=== PATIENT | male | born 1950 | race Caucasian/White ===

== ENCOUNTER 2016-11-25 13:01 | Emergency (ER) | payer OTHER ==
--- NOTE | 2016-11-25 19:50 | CON ---
DATE OF CONSULTATION: 11/25/2016 CONSULTING PHYSICIAN: Dr. Sánchez in the emergency room. CONSULTED PHYSICIAN: Monico Gerardo M.D. with Urology. REASON FOR CONSULTATION: Scrotal bleeding. HISTORY OF PRESENT ILLNESS: Mr. Hawk is a 66-year-old white male who is well known to me for his hi story of prostate cancer status post robotic prostatectomy performed by myself. He has been doing v kristina well from this standpoint and states that he has excellent control incontinence of his urine wit hout any hematuria or significant pain. He still has complete erectile dysfunction and is awaiting recovery. He is scheduled to follow up with me in January for a PSA. Currently, he came to the em ergency room yesterday. He woke up in the middle of night to go to the bathroom. While he was on t o his way to the bathroom, he scratched his scrotum, I think secondary to some itching and apparentl y ruptured varicosity on his scrotal wall which resulted in fairly significant bleeding. Patient do es take Eliquis and as a result, the bleeding was profuse and did not cease for approximately 3-4 ho urs. After significant amount of time of holding pressure on this, it seemed to have stopped. The patient then went to the hospital to see his who currently underwent a knee replacement surgery . While visiting her, the bleeding restarted and therefore, the patient has come down to the emerge ncy room for evaluation. At the time of my arrival to the emergency room, the patient's bleeding deras s stopped yet again. He states he is not actively bleeding and not having any pain in the scrotal r egion. He has never had bleeding like this before in the scrotum, but has had bleeding events like this on other parts of his body secondary to scratches or next while taking Eliquis. Of note, the p atramy does have a history of taking Eliquis secondary to atrial fibrillation. He has already under gone a cardioversion and was found to be in normal sinus rhythm afterwards and was told that he coul d stop his Eliquis; however, the patient also wanted to stop his flecainide and after stopping his f lecainide, Dr. Ballard recommend that he go back on his Eliquis until the patient could complete a Ho lter monitor program to ensure that he was still in sinus rhythm. The patient's Holter monitor stud y has been completed, but he has not yet got results of whether or not he has to keep taking his Rebeca janelle or not. ALLERGIES: None. CURRENT MEDICATIONS: 1. Bystolic. 2. Eliquis. 3. Amlodipine. 4. Zyrtec. 5. Fish oil. 6. Multivitamins. 7. Prevacid. 8. Irbesartan. 9. Vitamin D. PAST MEDICAL HISTORY: 1. Prostate cancer. 2. Multiple orthopedic fractures. 3. Atrial fibrillation. PAST SURGICAL HISTORY: 1. Tonsillectomy. 2. Back surgery. 3. Thumb surgery. 4. Cardioversion. 5. Cardiac ablation. 6. Robotic prostatectomy. SOCIAL HISTORY: Patient denies tobacco. States that he drinks alcohol only socially. Denies any i llicit drug use. FAMILY HISTORY: Significant for stroke, bone cancer and hypertension. REVIEW OF SYSTEMS: A 12 point review of systems is reviewed and unremarkable. The patient specific ally denies any arrhythmias, palpitations, chest pain, shortness of breath, dizziness, syncopal epis odes, fevers or chills, scrotal pain, problems with urination, dysuria, hematuria, lower extremity s welling or any other concerning signs or symptoms. Remainder of 12 point review of systems reviewed and otherwise negative. PHYSICAL EXAMINATION: GENERAL: No apparent distress, alert and oriented x3, well-nourished, well-developed, appears state d age. CARDIOVASCULAR: Regular rate and rhythm. Normal S1 and S2. Symmetric pulses. CHEST: No increased work of breathing. Symmetric expansion of the lungs. Clear anteriorly. GASTROINTESTINAL: Soft, nontender, and nondistended. Positive bowel sounds, no masses, no hepatosp lenomegaly. The port sites all fully healed without evidence of hernia. EXTREMITIES: No clubbing, cyanosis or edema. MUSCULOSKELETAL: No joint deformities or joint erythema noted. SKIN: Warm, dry, good turgor. GASTROINTESTINAL: On the scrotum, there is a lot of matted blood which precludes examination of pro per varicosities. There is no active bleeding at this time. Previous area is noted on the scrotum, which appears to be slightly lacerated which is likely where the bleeding had come from. This area is no longer actively bleeding. The penis is unremarkable and otherwise nonfocal. Testis bilatera lly descended. Penis is nonfocal. No hematuria. RECTAL: Rectal exam is deferred. ASSESSMENT AND PLAN: A 66-year-old white male with history of prostate cancer and currently scrotal bleeding secondary to a ruptured varicosity due to patient's induced trauma from scratching his scr otum while taking Eliquis. The bleeding appears to have stopped currently, but may have a relativel y high risk of restarting if the scab comes loose. I have recommended that the ER provided him with either Gelfoam fibrillar or Surgicel to take home with him. If the bleeding were to restart, I hav e asked him to use one of the hemostatic agent applied to the area of bleeding and hold pressure aga inst the scrotum for approximately 5 minutes. This should be very effective and inducing thrombosis and clotting of the bleeding area and resulting fairly quick hemostasis. The vein itself should cl ose within approximately 24 hours and should not result in any further bleeding. 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 From my standpoint otherwise unless he deras s recurrent bleeding from scrotal varices, surgical or laser ablation of scrotal varices not indicat ed unless this becomes a persistent recurring problem. I think he can keep his appointment with me as scheduled in January and nothing further needs to be done currently as the patient is not active ly bleeding.
--- OUTSIDE RECORDS SUMMARY | 2016-11-30 19:09 | XMS | Clinical Summary ---
:1950 Author Organization [facility] Address [address] [place] [address] Phone Care Team Providers Name Role Phone , Primary Care Provider Unavailable Allergies Not on File Current Medications Not on file Active Problems Not on file Social History Tobacco Use Types Packs/Day Years Used Date Never Assessed Sex Assigned at Date Recorded Not on file Last Filed Vital Signs Not on file Plan of Treatment Not on file Results Not on filefrom Last 3 Months
== END 2016-11-25 14:35 | disposition home or self-care (01) ==
LOC: ERS 13:01
DX: I86.1 Scrotal varices (principal); I48.91 Unspecified atrial fibrillation; K21.9 Gastro-esophageal reflux disease without esophagitis; I10 Essential (primary) hypertension
CPT/HCPCS: 99283

== ENCOUNTER 2017-03-09 10:13 | Outpatient (CLI) | payer MEDICARE, OTHER ==
[2017-03-09 11:33] LABS: #Basophils 0.1 thou/uL (0.0-0.2); #Eosinphils 0.3 thou/uL (0.0-0.7); #Lymphocytes 2.4 thou/uL (1.20-3.40); #Monocytes 0.8 thou/uL (0.11-0.59); #Neutrophils 7.5 thou/uL (1.40-6.50); %Basophils 0.7 % (0.0-1.0); %Eosinophils 2.7 % (0.0-10.0); %Lymphocytes 21.4 % (21.0-51.0); %Monocytes 7.4 % (0.0-10.0); %Neutrophils 67.8 % (42.0-75.0); Hemoglobin 15.9 g/dL (14.0-18.0); Mean Corpuscular HGB CONC 33.6 g/dL (32.0-36.0); Mean Corpuscular Hemoglobin 29.9 pg (27.0-31.0); Mean Corpuscular Volume 88.9 fl (80.0-94.0); Mean Platelet Volume 6.7 fL (7.4-10.4); Platelet Count 226 thou/uL (130-400); RBC Distribution Width 12.4 % (11.5-14.5); Red Blood Cell (RBC) Count 5.34 mill/uL (4.70-6.10); White Blood Cell (WBC) Count 11.1 thou/uL (4.8-10.8)
[2017-03-09 12:04] LABS: Anion Gap 13 mmol/L (10-20); BUN (Urea Nitrogen) 17 mg/dL (8.4-25.7); Calc. Creatinine Clearance 0 mL/min (70-130); Calcium 9.4 mg/dL (7.8-10.44); Carbon Dioxide 29 mmol/L (23-31); Chloride 105 mmol/L (98-107); Estimated GFR-MDRD 65; Glucose 100 mg/dL (80-115); Potassium 3.8 mmol/L (3.5-5.1); Sodium 143 mmol/L (136-145)
== END 2017-03-09 10:14 | disposition home or self-care (01) ==
LOC: LABBT 10:13
PROVIDERS: ATTEND Specialist
DX: Z01.812 Encounter for preprocedural laboratory examination (principal); C49.A4 Gastrointestinal stromal tumor of large intestine
CPT/HCPCS: 80048; 85025

== ENCOUNTER → 2017-03-10 | Day surgery (SDC) | payer MEDICARE, OTHER ==
[2017-03-09 16:50] VITALS: BMI 33.9
[~2017-03-10] MED LIST: PROPOFOL 20 ML ONE; PROPOFOL 200 MG/20 ML VIAL ONE
--- NOTE | 2017-03-10 09:52 | OP ---
DATE OF PROCEDURE: 03/10/2017 INDICATION FOR PROCEDURE: This is a 66-year-old patient with atrial fibrillation and has undergone a blations in the past. He underwent a colonoscopy yesterday or the day before and then developed agai n atrial fibrillation. He was advised to undergo a cardioversion. He was taken to the recovery area where he underwent the procedure today without difficulties or complications. He was given short ac ting propofol for the procedure and using one attempt at 200 joules he was successfully converted mandy k to normal sinus rhythm with heart rate in the 60s. He remained stable throughout the procedure.
--- NOTE | 2017-03-10 11:54 | DIS ---
DATE OF PROCEDURE: 03/10/2017 PREPROCEDURE DIAGNOSES: Atrial fibrillation. His other diagnoses include history of atrial fibrilla tion in the past and flutter and ablations. He also has a history of prostate cancer. He also has h ypertension. DISCHARGE DIAGNOSES: Atrial fibrillation. His other diagnoses include history of atrial fibrillatio n in the past and flutter and ablations. He also has a history of prostate cancer. He also has hype rtension. PROCEDURES IN HOSPITAL: Included electrocardioversion with one attempt at 200 joules back to sinus r hythm. DISCHARGE MEDICATIONS: Include flecainide 50 mg b.i.d., Irbesartan 300 mg daily, Bystolic 5 mg daily , amlodipine 10 mg daily, Diamox Sequels 1 tablet in the morning and evening, aspirin 81 mg a day, Zy rtec 10 mg a day, Prevacid 15 mg tablets 1 capsule daily before meal. He also will continue on his Eliquis at 5 mg b.i.d. prior to undergoing an upcoming procedure for a benign gastric tumor. He will stop the Eliquis 2-3 days before the procedure and then resume it after the procedure. He tolerated the procedure well. No difficulties or complications were encountered. He will be disc harged home if he remains stable.
--- NOTE | 2017-05-09 21:46 | EKG ---
Test Reason : POST CARDIOVERSION Blood Pressure : / mmHG Vent. Rate : 063 BPM Atrial Rate : 063 BPM P-R Int : 220 ms QRS Dur : 104 ms QT Int : 452 ms P-R-T Axes : 067 017 034 degrees QTc Int : 462 ms Sinus rhythm with 1st degree A-V block Abnormal ECG When compared with ECG of 27-AUG-2016 11:53, No significant change was found Confirmed by BENOIT JOHNSON M.D. ([id number]) on 05/09/2017 9:46:09 PM Referred By: KITTY Confirmed By:BENOIT JOHNSON M.D.
== END ==
LOC: CCL 07:34
PROVIDERS: ATTEND Internal Medicine Cardiovascular Disease
DX: I48.0 Paroxysmal atrial fibrillation (principal); I48.4 Atypical atrial flutter; I10 Essential (primary) hypertension; F10.11 Alcohol abuse, in remission; Z85.46 Personal history of malignant neoplasm of prostate; Z80.1 Family history of malignant neoplasm of trachea, bronchus and lung; Z79.01 Long term (current) use of anticoagulants; Z79.82 Long term (current) use of aspirin; Z79.899 Other long term (current) drug therapy; Z90.79 Acquired absence of other genital organ(s); Z98.890 Other specified postprocedural states
CPT/HCPCS: 92960; 93005; 93010; J2704

== ENCOUNTER 2017-03-16 05:46 | Inpatient (IN) | payer OTHER, MEDICARE ==
--- NOTE | 2017-03-08 15:53 | HP ---
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 Shen performed appre ciating a tumor mass in the gastric fundus. He was sent to by us [place] with Dr. Viveros per formed an endoscopic ultrasound and biopsy consistent with a GIST tumor. This appeared to be benign per biopsy results. The patient is referred for resection. The patient has history of GERD. Currently, he is 267 pounds, 36 BMI. He has previously lost 50 sonya nds intentionally, but has regained 20 pounds. During his weight loss, he has noted his reflux sympt oms mostly subsided. In the past, he has been on 2 PPIs when he was heavier, but he has lost weight. He was only taking one qlla-bal-velfjhz PPI daily. The patient has occasional severe reflux every 6 months. There is also choking, but otherwise this d id not occur when he lost weight. We have had a long discussion regarding considerations of bariatri c surgery and antireflux surgery and considerations at this time at his age of 66 or to deal with onl y the GIST tumor. He was noted to have a very small hiatal hernia which has been stable for many yea rs according to past EGDs. Plan is to laparoscopically possible open resect the gastric fundus GIST tumor. He understands risks of infection, bleeding, reoperation, and consents. The patient has a history of atrial fibrillation, having had 2 ablations controlled in the last year without recurrences of atrial fibrillation. He has Watchman's procedure and he is no longer on antic oagulation. He has been followed by Dr. Campos Laird who has recently moved to [place] and he will see Dr. Wooten for preoperative cardiac clearance in the next 48 hours. The patient i s asymptomatic from a cardiac standpoint. He is active. ALLERGIES: None. TOBACCO: None. ALCOHOL: None. PAST MEDICAL HISTORY: 1. GERD for 25 years, improved with weight loss of 50 pounds, slightly worsened with 20 pound weight regain. Recent EGD revealed GIST tumor. 2. Atrial fibrillation status post two ablations without recurrent atrial fibrillation in more than a year. He has been off anticoagulation. 3. Watchman's procedure performed 4. Hypertension. 4. Prostatectomy, robotic, Dr. Gerardo, August 2016 with good pathology results. No evidence of disea se. The patient is due for colonoscopy and we will arrange with Dr. Shen. PAST SURGICAL HISTORY: Watchman's procedure; prostatectomy in August 2016, robotic; two cardiac ablati ons; cardiac catheterization 10 years ago, normal; tonsillectomy in the past; recent upper endoscopy. Upper endoscopic ultrasound revealed a mass measuring 31 x 29 mm. No lymphadenopathy seen. Bile d uct and gallbladder were normal. No other abnormalities seen. No lymphadenopathy appreciated. Biop sy results as noted above. MEDICATIONS: Bystolic 5 mg a day, irbesartan 300 mg a day, amlodipine 10 mg a day. Flecainide 100 m g twice daily, discontinued in October 2016. Prevacid daily, vitamins daily. REVIEW OF SYSTEMS: Ten point noncontributory. PHYSICAL EXAMINATION: HEAD, EARS, EYES, NOSE, AND THROAT: Unremarkable. LUNGS: Clear to auscultation. CARDIAC: Regular rate and rhythm without murmur or gallop. ABDOMEN: Soft, nontender, no masses. Diastasis recti present. Infraumbilical incision from robotic surgery. VITAL SIGNS: 267 pounds, 73 inches tall, 36 BMI, 166/80, pulse rate 57, temperature 98.1 degrees. NEUROLOGIC: Neurologically intact. GCS is 15. LYMPHATIC: No lymphadenopathy in neck, groins, or axilla. ASSESSMENT AND PLAN: 1. Gastrointestinal stromal tumor of gastric fundus. We would plan laparoscopic resection. Risks o f infection, bleeding, reoperation, gastric leakage from closure discussed and questions answered. W e will plan in the next few weeks after cardiac assessment. 2. History of atrial fibrillation, Watchman's procedure. No evidence of atrial fibrillation since t hat time. We will await Dr. Wooten's opinion who we will see in 48 hours for clearance. The patie nt is asymptomatic from a cardiac standpoint. 3. History of prostate cancer status post prostatectomy last year. 4. Due for colonoscopy per Dr. Shen.
[2017-03-09 10:37] VITALS: BMI 33.9
[2017-03-16] MEDS ORDERED: Fentanyl 100 MCG/2 ML VIAL ONE (06:55)
[2017-03-16] MEDS ORDERED: Lidocaine 1% w/Epinephrine 1:200K 30 ML VIAL ONE (07:04)
[2017-03-16] MEDS ORDERED: Bupivacaine 0.25% HCL 30 ML VIAL ONE (07:04)
[2017-03-16] MEDS ORDERED: Ketorolac Tromethamine 30 MG/ML VIAL ONE (07:10)
[2017-03-16] MEDS ORDERED: cefOXitin 2 GM, Syringe 1 ML in Sterile Water 10 ML SLOW IVP SCH (07:15)
[2017-03-16] MEDS ORDERED: Midazolam HCl 2 mg/2 ml Vial ONE (07:23)
[2017-03-16] MEDS ORDERED: Dextrose 50% Abboject 50 ML SYRINGE SLOW IVP PRN (09:51)
[2017-03-16] MEDS ORDERED: hydrALAZINE 20 MG/ML VIAL SLOW IVP PRN (09:51)
[2017-03-16] MEDS ORDERED: Dextrose 5% in Water 1,000 ML IV PRN (09:51)
[2017-03-16] MEDS ORDERED: diphenhydrAMINE 50 MG/ML VIAL IVP PRN (09:51)
[2017-03-16] MEDS ORDERED: Ondansetron HCl/PF 4 MG/2 ML Vial IVP PRN ×2 (09:51→11:01)
--- NOTE | 2017-03-16 10:42 | OP ---
DATE OF PROCEDURE: 03/16/2017 PREOPERATIVE DIAGNOSES: GIST gastric fundus tumor, hiatal hernia, history of atrial fibrillation on flecainide. POSTOPERATIVE DIAGNOSES: GIST gastric fundus tumor, hiatal hernia, history of atrial fibrillation on flecainide. Anterior lateral gastric fundus tumor and hiatal hernia. PROCEDURE: Laparoscopic hiatal hernia repair. 50-Tajik bougie. Laparoscopic resection of gastric anterior fundus tumor, GIST. Completion upper endoscopy. SURGEON: Dr. Thiago Brenner ANESTHESIA: General. Local 0.25% Marcaine 60 mL, 2% Xylocaine, 20 mL. FINDINGS: Anterior fundus lateral gastric tumor adequately removed from the gastroesophageal junctio n, stapled excision with more than adequate margins, completion endoscopy normal. PROCEDURE: The patient was taken to the operating room where under general anesthesia, abdomen was c lipped of hair, prepared with ChloraPrep, draped in routine fashion. Local anesthetic infiltrated in to skin and subcutaneous tissue about the operative sites. Supraumbilical midline incision made and pneumoperitoneum to 15 mmHg obtained with the Veress needle, replacing it with a 5 port. Video lapar oscope inserted. Bilateral far lateral subcostal incision made and 5 ports placed. Bilateral midcla vicular upper abdominal incision was made and a 15 port placed on the left and a 12 port on the right and subxiphoid incision made and a 5 mm obturator inserted and a Ruchi retractor replaced this, vis ualized laparoscopically, reflecting the left lobe of the liver anteriorly. The liver was small and normal and not fatty. The patient did have a small to moderate size hiatal hernia. This hiatal nelida ia was closed by taking down the hepatogastric ligament adjacent to the right crura and mobilizing th e phrenoesophageal ligament to the left, visualizing the left and right crura, dissecting it free pos teriorly, placing a Marcelino drain, bringing it out and held in place with a 5 mm port placed in left lower quadrant with a grasper. The posterior crura approximated with 2 sutures after a 15 Tajik lucy gie was placed into the stomach. Adequate closure of the hiatal hernia was performed. Marcelino drain was left in place as the gastric tumor was appreciated in the anterior gastric fundus, well removed and caudal from the EG junction. The area of the serosa adjacent to it was then grasped, reflected a nteriorly and a blue load stapler fired 3 times below this resecting this gastric tumor and then rafa nancy the gastric tumor through an Endobag and opening on the back table noting more than adequate piter ins. The left upper quadrant 15 mm port site was closed by approximating the posterior fascia with 0 Vicryl GraNee needle and the anterior fascia with 0 Vicryl UR 2 needle. Staple line in the stomach was inspected and noted to be hemostatic. Some clips were placed where there was some slight oozing, but otherwise is hemostatic. At this point, endoscopy performed. Endoscope placed per os under direct visualization and passed do wn the esophagus into the stomach after removing the bougie. The pylorus was visualized. The staple line was intact without bleeding. There was no leakage as visualized anteriorly with a well distend ed stomach under water. The stomach was decompressed, scope was removed and the liver retractor rafa nancy and irrigant and pneumoperitoneum evacuated and all instruments removed and all skin incisions ap proximated with interrupted subdermal 4-0 Monocryl, anterior rectus sheath was closed with 0 Vicryl s uture UR needle. DermaGlue applied. The patient tolerated the procedure well.
[2017-03-16] MEDS ORDERED: Promethazine HCl 25 MG/ML VIAL SLOW IVP PRN (11:01)
[2017-03-16] MEDS ORDERED: Ketorolac Tromethamine 30 MG/ML VIAL IVP PRN (11:01)
[2017-03-16] MEDS ORDERED: Promethazine HCl 25 MG/ML VIAL IM PRN (11:01)
[2017-03-16] MEDS ORDERED: Meperidine HCl/PF 25 MG/ML VIAL SLOW IVP PRN (11:01)
[2017-03-16] MEDS: 1/2 NS w/KCL 20 mEq 1,000 ML IV SCH ×3 (13:41→22:33)
[2017-03-16] MEDS: Acetaminophen 1,000 MG in Premix Bag 1 BAG IVPB SCH ×3 (13:41→23:44)
[2017-03-16] MEDS: Ketorolac Tromethamine 30 MG/ML VIAL IVP SCH ×3 (13:42→23:44)
[2017-03-16] MEDS ORDERED: Ondansetron HCl/PF 4 MG/2 ML Vial ONE (15:56)
[2017-03-16] MEDS ORDERED: Lidocaine 1% PF 5 ML VIAL ONE (15:56)
[2017-03-16] MEDS ORDERED: Dexamethasone 20 MG/5 ML VIAL ONE (15:56)
[2017-03-16] MEDS ORDERED: ePHEDrine/0.9% NaCl/PF SYRINGE 50 mg/10 ml ONE (15:56)
[2017-03-16] MEDS ORDERED: PHENYLEPHRINE-NS 100 MCG/ML 10 ML SYRINGE ONE (15:56)
[2017-03-16] MEDS ORDERED: Glycopyrrolate 0.2 MG/ML 5 ML SYRINGE ONE (15:56)
[2017-03-16] MEDS ORDERED: Propofol 200 MG/20 ML VIAL ONE (15:56)
[2017-03-16] MEDS: Flecainide 50 MG TAB PO SCH (20:51)
[2017-03-16] MEDS ORDERED: Enoxaparin Sodium 40 MG/0.4 ML SYRINGE SC SCH (21:00)
[2017-03-17 04:36] LABS: #Lymphocytes 1.2 thou/uL (1.20-3.40); #Monocytes 0.8 thou/uL (0.11-0.59); #Neutrophils 8.6 thou/uL (1.40-6.50); %Basophils 0.1 % (0.0-1.0); %Eosinophils 0.2 % (0.0-10.0); %Lymphocytes 11.7 % (21.0-51.0); %Monocytes 7.1 % (0.0-10.0); %Neutrophils 80.9 % (42.0-75.0); Hemoglobin 13.9 g/dL (14.0-18.0); Mean Corpuscular HGB CONC 33.9 g/dL (32.0-36.0); Mean Corpuscular Hemoglobin 30.1 pg (27.0-31.0); Mean Corpuscular Volume 88.7 fl (80.0-94.0); Mean Platelet Volume 6.2 fL (7.4-10.4); Platelet Count 238 thou/uL (130-400); Red Blood Cell (RBC) Count 4.61 mill/uL (4.70-6.10); White Blood Cell (WBC) Count 10.6 thou/uL (4.8-10.8)
[2017-03-17 04:51] LABS: Anion Gap 11 mmol/L (10-20); BUN (Urea Nitrogen) 13 mg/dL (8.4-25.7); Calc. Creatinine Clearance 128 mL/min (70-130); Calcium 8.8 mg/dL (7.8-10.44); Carbon Dioxide 27 mmol/L (23-31); Chloride 106 mmol/L (98-107); Estimated GFR-MDRD 84; Glucose 113 mg/dL (80-115); Potassium 4.2 mmol/L (3.5-5.1); Sodium 140 mmol/L (136-145)
[2017-03-17] MEDS: Ketorolac Tromethamine 30 MG/ML VIAL IVP SCH ×2 (06:28→11:48)
[2017-03-17] MEDS: Acetaminophen 1,000 MG in Premix Bag 1 BAG IVPB SCH (06:28)
[2017-03-17] MEDS ORDERED: Amlodipine 10 MG TAB PO SCH (09:00)
[2017-03-17] MEDS ORDERED: Pantoprazole 40 MG VIAL IVP SCH (09:00)
[2017-03-17] MEDS ORDERED: Nebivolol HCl 5 MG TAB PO SCH (09:00)
[2017-03-17] MEDS ORDERED: traMADol HCl 50 MG TAB PO PRN ×2 (10:00)
[2017-03-17] MEDS: Flecainide 50 MG TAB PO SCH (10:27)
[2017-03-17 11:49] VITALS: BP 156/88; TEMP 97.7
[2017-03-17] MEDS ORDERED: Hydrocodone-Acetamin 15 ML UDCUP PO PRN (14:00)
--- NOTE | 2017-03-17 14:32 | PRG ---
DATE OF SERVICE: 03/17/2017 Mr. Hawk is doing well today. He is tolerating his liquids. He was advanced to full liquids. He is passing flatus. He has had some belching. He is not nauseated. Pathology is pending. PHYSICAL EXAMINATION: LUNGS: Clear to auscultation. CARDIAC: Regular rate and rhythm without murmur or gallop. ABDOMEN: Soft, nontender. Surgical wounds look good. VITAL SIGNS: Temperature 97.7, 77, 156/88 LABORATORY: White count 10, hemoglobin 13. Basic metabolic profile was normal. ASSESSMENT AND PLAN: Doing well post-laparoscopic partial gastrectomy for GIST tumor. PLAN: Discharge home today. He is doing well. Pain control with Tylenol and Motrin. He will take Ultram as needed, prescription #20, 2 refills given. He will followup in my office in approximately a week to 10 days. Diet and activity as tolerated.
[2017-03-17] MEDS ORDERED: Acetaminophen 500 MG TAB PO PRN (16:00)
--- NOTE | 2017-03-18 03:12 | DIS ---
DATE OF ADMISSION: 03/16/2017 DATE OF DISCHARGE: 03/17/2017 DISCHARGE DIAGNOSES: GIST tumor, anterior fundus stomach, hiatal hernia. PROCEDURE: Laparoscopic hiatal hernia repair over 50-Azerbaijani bougie. Laparoscopic resection of GIST tumor with completion endoscopy. Pathology pending. Discharge hemoglobin 13. 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 Shen performed appreciated tumor mass in the gastric fundus sent to [facility]. Dr. Viveros performed endoscopic ultrasound biopsy consistent with a GIST tumor. Dr. Viveros referred him outpatient to Dr. Oconnor at [facility]. Patient, hilario melendez, preferred care at [facility] and reported to see me. He has a history of reflux much improved after inte ntional weight loss. He saw Dr. Dustin Akhtar preoperatively, had a cardioversion for atrial fibrillatio n occurring after undergoing colonoscopy. 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 He has had Watchman was procedure and seen by Dr. Campos Laird in the past for coronary care. Patient underwent cardiac evaluation, cardiac clearance and cardioversi on after the colonoscopy was normal. HOSPITAL COURSE: He underwent the above procedure and postoperatively did well, advanced from clears to full liquid diet. Pathology is pending. Patient had a small medium sized hiatal hernia repair a t the time of laparoscopy as well as resection of his GIST tumor. Grossly, the margins were negative . Pathology is pending. Patient will follow up in my office in approximately a week and half. He w ill advance his diet slowly and activities unrestricted.
== END 2017-03-17 14:15 | disposition home or self-care (01) | DRG 983 ==
LOC: SDC 05:46 → SJJU 10:54
PROVIDERS: ADMIT Specialist; ATTEND Specialist
PROC: 0DB44ZZ Excision of Esophagogastric Junction, Percutaneous Endoscopic Approach (ICD-10-PCS; principal; 2017-03-16)
PROC: 0BQT4ZZ Repair Diaphragm, Percutaneous Endoscopic Approach (ICD-10-PCS; 2017-03-16)
DX: C49.A2 Gastrointestinal stromal tumor of stomach (principal); I48.91 Unspecified atrial fibrillation; E66.9 Obesity, unspecified; I10 Essential (primary) hypertension; K21.9 Gastro-esophageal reflux disease without esophagitis; K44.9 Diaphragmatic hernia without obstruction or gangrene; Z85.46 Personal history of malignant neoplasm of prostate; Z68.36 Body mass index [BMI] 36.0-36.9, adult
CPT/HCPCS: 36415; 80048; 85025; 88307; 88341; 88342; 88360; 94760; A4216; C9113; J0131; J0694; J1100; J1650; J1885; J2001; J2250; J2270; J2405; J2704; J3010; S0020

== ENCOUNTER 2017-03-25 08:04 | Outpatient (CLI) | payer MEDICARE, OTHER ==
--- NOTE | 2017-03-25 09:09 | CT ---
CT ABDOMEN AND PELVIS WITH ORAL AND IV CONTRAST: Date: 03/25/17 HISTORY: GIST (gastrointestinal tumor), malignant. FINDINGS: There are no previous exams for comparison. The lung bases are clear. The liver, spleen, pancreas, adrenal glands, and kidneys are normal except for calcified granulomas in the spleen. No calcified gallstones are seen. No free air, free fluid, or lymphadenopathy identified in the abdomen or pelvis. The small bowel loops are not abnormally dilate d. There is colonic diverticulosis. A small, fat-containing umbilical hernia is present. No evidence of aneurysmal dilatation of the abdominal aorta is seen. There are postop changes in the stomach. The re are degenerative changes in the spine. IMPRESSION: 1. No evidence of metastatic disease. 2. Colonic diverticulosis. POS: YAIR
[2017-03-25] MEDS ORDERED: Iopamidol 370 76% 100 ML VIAL ONE (16:49)
== END 2017-03-25 08:05 | disposition home or self-care (01) ==
LOC: CT 08:04
PROVIDERS: ATTEND Specialist
DX: C49.A4 Gastrointestinal stromal tumor of large intestine (principal); K57.30 Diverticulosis of large intestine without perforation or abscess without bleeding
CPT/HCPCS: 74177

== ENCOUNTER 2017-04-03 20:30 | Outpatient (CLI) | payer MEDICARE, OTHER | END 2017-04-03 20:31 | disposition home or self-care (01) | LOC: SLEEPLAB 20:30 | PROVIDERS: ATTEND Family Medicine | DX: G47.33 Obstructive sleep apnea (adult) (pediatric) (principal); G47.31 Primary central sleep apnea; K21.9 Gastro-esophageal reflux disease without esophagitis; E66.9 Obesity, unspecified; R35.1 Nocturia | CPT/HCPCS: 95811 ==

== ENCOUNTER 2017-04-14 06:00 | Day surgery (SDC) | payer MEDICARE, OTHER ==
[2017-04-13 11:45] VITALS: BMI 33.9
[2017-04-14] MEDS ORDERED: hydrALAZINE 20 MG/ML VIAL ONE (06:44)
[2017-04-14] MEDS ORDERED: Ondansetron HCl/PF 4 MG/2 ML Vial ONE (07:09)
[2017-04-14] MEDS ORDERED: Diprivan 40 ML ONE (07:34)
[2017-04-14] MEDS ORDERED: PHENYLEPHRINE-NS 100 MCG/ML 10 ML SYRINGE ONE ×2 (07:49→15:47)
--- NOTE | 2017-04-14 09:18 | ECHO ---
CARDIOLOGY PROCEDURE NOTE: Date: 04/14/17 PROCEDURE: Transesophageal echocardiogram. REASON FOR PROCEDURE: Mr. Hawk is a 66-year-old male with history of atrial arrhythmias, now with recurrence. He has just s tarted Eliquis. He is here for JAYDON and cardioversion. PROCEDURE IN DETAIL: The patient received propofol by anesthesia provider. After adequate level of sedation achieved, the standard transesophageal echocardiogram probe was passed into the esophagus without difficulty. The p atient tolerated the procedure well. No complications noted. RESULTS: Left atrium mildly enlarged, about 4.2 cm in horizontal diameter. Left atrial appendage well visualiz ed and contains no clots. Left atrial velocity is excellent, over 60 cm/second. Four of four pulmonar y veins were visualized. Max velocity of 60 cm/second on the left side. No stenosis identified. Inter atrial septum is free of defect. Mitral valve has mild regurgitation. Wall thickness and LV size is n ormal. Right chambers nondilated. No ventricular or atrial septal defect visualized. Tricuspid valve has mild regurgitation. Aortic valve has three leaflets with trivial regurgitation noted only. Pulmon renny valve is not well visualized. Pericardial space without effusion. Visualized portion the ascendin g and descending aorta without aneurysm, dissection, or atheroma. Left atrial appendage well visuali zed in detail in preparation for potential Watchman occlusion device in the future. CONCLUSION: 1. No intracardiac clots. 2. Normal LV function. 3. Mild left atrial enlargement. 4. Mild valvular heart disease, with mild MR, AI and TR visualize.
--- NOTE | 2017-04-14 11:06 | OP ---
DATE OF PROCEDURE: 04/14/2017 PROCEDURE: Cardioversion. REFERRING PHYSICIAN: Dr. Swathi Akhtar Mr. Hawk is a 66-year-old male with prior history of atrial arrhythmias, status post pulmonary venous isolation procedure. He has been off his Eliquis, but recently his atrial fibrillation recurred. H e has just restarted Eliquis. JAYDON today demonstrating no intracardiac clots and here for cardioversi on. The baseline atrial flutter which is atypical appearing. PROCEDURE: The patient received propofol for deep sedation. After adequate level of sedation achie ed, a 100 joule shock promptly converted the patient back to sinus rhythm. CONCLUSION: Successful cardioversion. PLAN: Continue flecainide and Eliquis. We will discuss option for pulmonary venous isolation proced ure as well as a Watchman procedure with him.
[2017-04-14] MEDS ORDERED: Propofol 200 MG/20 ML VIAL ONE (15:47)
== END 2017-04-14 09:18 | disposition home or self-care (01) ==
LOC: CCL 06:00
PROVIDERS: ATTEND Internal Medicine Cardiovascular Disease
PROC: 5A2204Z Restoration of Cardiac Rhythm, Single (ICD-10-PCS; principal; 2017-04-14)
DX: I48.1 Persistent atrial fibrillation (principal); I10 Essential (primary) hypertension; Z79.01 Long term (current) use of anticoagulants; Z79.899 Other long term (current) drug therapy; Z79.82 Long term (current) use of aspirin; Z98.890 Other specified postprocedural states
CPT/HCPCS: 92960; 93005; 93010; 93312; J0360; J2405; J2704

== ENCOUNTER 2017-08-04 06:00 | Day surgery (SDC) | payer MEDICARE, OTHER ==
[2017-08-03 08:43] VITALS: BMI 33.9
[2017-08-04] MEDS ORDERED: PROPOFOL 0 ML ONE (06:58)
[2017-08-04] MEDS ORDERED: Propofol 1,000 MG/100 ML VIAL IV ONE (07:32)
--- NOTE | 2017-08-04 13:12 | ECHO ---
CARDIOLOGY PROCEDURE NOTE: Date: 08/04/17 This is a 67-year-old patient with history of atrial fibrillation and flutter, who has undergone abla tion, but continued to have episodes of intermittent atrial flutter or atrial fibrillation. He was ad vised to undergo implantation of a Watchman device to decrease the risk of embolic phenomenon. He has undergone the procedure and we are seeing him now follow up to evaluate the Watchman device to ensur e that it is well seated and there is no evidence of a peridevice leakage. He was taken to the [facility] area, where he under the procedure without difficulties or complications. IMPRESSION: 1. Normal left ventricular systolic function, ejection fraction 55-60%. 2. Mild left atrial dilatation. 3. Well seated Watchman device without evidence of peridevice leak. 4. Mild mitral valve regurgitation. 5. Mild tricuspid valve regurgitation. 6. Mild aortic valve regurgitation. 7. Trivial PFO which is within normal limits. The patient tolerated the procedure well. No difficulties or complications were encountered.
[2017-08-04] MEDS ORDERED: PROPOFOL 200 MG/20 ML VIAL ONE (15:51)
--- NOTE | 2017-08-04 15:51 | DIS ---
DATE OF ADMISSION: 08/04/2017 DATE OF DISCHARGE: 08/04/2017 ADMITTING DIAGNOSES: Status post Watchman device. He was not admitted. [facility] to undergo a transesophageal echocardiogram for evaluation of the Watchman device to ensu re that it was well-seated and there was no evidence of jose f-device leakage. His other diagnoses inc luded history of atrial fibrillation, history of atrial flutter, ablation of atrial fibrillation, abl ation of atrial flutter, history of prostate cancer, history of stomach cancer, both in remission, hi story of tonsillectomy. DISCHARGE DIAGNOSES: Status post Watchman device. History of atrial fibrillation, history of atrial flutter, ablation of atrial fibrillation, ablation of atrial flutter, history of prostate cancer, hi story of stomach cancer, both in remission, history of tonsillectomy and also has hypertension. DISCHARGE MEDICATIONS: Include Zyrtec 10 mg a day, Prevacid 15 mg a day, Eliquis 5 mg b.i.d., Bystol ic 5 mg daily, irbesartan 300 mg daily, he was taking amlodipine 5 mg a day, flecainide 100 mg b.i.d. , multivitamins. PROCEDURE IN HOSPITAL: Included transesophageal echocardiogram. FOLLOWUP: His followup will be with the bargeman in the next 2-3 weeks. Since he can get an appointment, he will see me in the next 1-2 months. HOSPITAL COURSE: This is a very pleasant gentleman who is now 67 years old, underwent ablation of at rial fibrillation and atrial flutter in the past. He has had episodes of atrial fibrillation continu ed intermittently and was advised to undergo a Watchman device, which was implanted earlier by Dr. Robert zambrano. He was seen today after the device was implanted, it was implanted on 06/21/2017. Today, he u nderwent a transesophageal echocardiogram to evaluate for possible jose f-device leads and make sure th at was well-seated and there were no other complications. He did undergo the procedure today and thi s showed good seating of the device without evidence of a jose f-device leak. There was no evidence of thrombus in the left atrium. There was a very small patent foramen ovale with a left to right shunt . There was also mild tricuspid, mitral and aortic valve regurgitation. The left ventricular systol ic function was well preserved. Left atrium was measured at 4.4. No complications or difficulties w ere encountered during the procedure. If the patient remains stable, he will be discharged home in t he next 1-2 hours.
== END 2017-08-04 09:02 | disposition home or self-care (01) ==
LOC: CCL 06:00
PROVIDERS: ATTEND Internal Medicine Cardiovascular Disease
DX: I48.1 Persistent atrial fibrillation (principal); I48.4 Atypical atrial flutter; I10 Essential (primary) hypertension; C61 Malignant neoplasm of prostate; I08.3 Combined rheumatic disorders of mitral, aortic and tricuspid valves; Z79.01 Long term (current) use of anticoagulants; Z79.899 Other long term (current) drug therapy
CPT/HCPCS: 93312; J2704

== ENCOUNTER 2017-08-17 19:30 | Outpatient (CLI) | payer MEDICARE, OTHER | END 2017-08-17 19:31 | disposition home or self-care (01) | LOC: SLEEPLAB 19:30 | PROVIDERS: ATTEND Internal Medicine Critical Care Medicine | DX: G47.33 Obstructive sleep apnea (adult) (pediatric) (principal); R09.89 Other specified symptoms and signs involving the circulatory and respiratory systems; K21.9 Gastro-esophageal reflux disease without esophagitis; R06.83 Snoring; R35.1 Nocturia | CPT/HCPCS: 95811 ==

== ENCOUNTER 2018-04-12 13:48 | Outpatient (CLI) | payer MEDICARE, OTHER ==
--- NOTE | 2018-04-12 15:51 | ULT ---
THYROID ULTRASOUND: 04/12/18 HISTORY: Thyromegaly. COMPARISON: None. TECHNIQUE: Multiplanar rosenbaum scale and color doppler images were obtained in a thyroid ultrasound. FINDINGS: The thyroid lobes are enlarged measuring 5.2 and 5.0 cm in length on the right and left, respectively . Multiple thyroid nodules are seen in both lobes. Largest on the right measures 2.2 cm in greatest d imension is isoechoic to hyperechoic, well circumscribed and without suspicious calcifications. The l argest on the left measures 2.9 cm in greatest dimension is wider than tall, well-circumscribed and w ithout suspicious calcifications. This nodule also has diffuse cystic features and is not completely solid. IMPRESSION: The largest nodule on the left is a TIRADS category 2 lesion and no further followup or FNA is requir ed per recent recommendations. The nodule in the right lobe is a TIRADS category 3 lesion. Given that it is greater than 1.5 cm, a followup ultrasound in one year, three years and five years is recommen ded. POS: YAIR
== END 2018-04-12 13:49 | disposition home or self-care (01) ==
LOC: BICULT 13:48
PROVIDERS: ATTEND Internal Medicine
DX: E01.0 Iodine-deficiency related diffuse (endemic) goiter (principal); E04.2 Nontoxic multinodular goiter
CPT/HCPCS: 76536

== ENCOUNTER 2018-12-25 07:26 | Day surgery (SDC) | payer MEDICARE, OTHER ==
[2018-12-22 09:41] VITALS: BMI 34.5
[2018-12-25] MEDS ORDERED: PROPOFOL 200 MG/20 ML VIAL ONE (10:25)
[2018-12-25] MEDS ORDERED: hydrALAZINE 20 MG/ML VIAL ONE (11:04)
--- NOTE | 2018-12-25 11:16 | OP ---
DATE OF PROCEDURE: 12/25/2018 STONE GLUER SURGEON: None. PROCEDURE PERFORMED: Esophagogastroduodenoscopy, diagnostic. INDICATIONS: 1. History of GI stromal tumor, resected early 2018. 2. GERD. MEDICATIONS: See Anesthesia record. FINDINGS: After discussion of the risks, benefits, and alternatives of the procedure, informed consent was obtained and witnessed. Pre-endoscopic cardiopulmonary examination was satisfactory. Time-out was performed before sedation was achieved. Sedation was achieved with Anesthesia assistance in the endoscopy unit. A Pentax adult upper endoscope was placed into the oropharynx and passed through the cricopharyngeus under direct visualization. The esophageal mucosa appeared normal throughout with a normal-appearing Z-line at 45 cm from the incisors. The endoscope was advanced through the GE junction and into the stomach. Forward and retroflexed views of the entire gastric mucosa were obtained. Previously viewed hiatal hernia is really not apparent on this examination. There are some subtle postoperative changes in the gastric fundus with some slight mucosal architectural distortion, but no visible suture line or staple line. The gastric mucosa appears unremarkable throughout. The endoscope was advanced through the pylorus and into the first and second portions of the duodenum, which appeared normal. The upper endoscope was completely withdrawn and the patient allowed to recover. The patient tolerated the procedure well. There were no immediate postprocedure complications. IMPRESSION: Normal esophagogastroduodenoscopy. RECOMMENDATION: Repeat EGD in 3 years, along with his next surveillance colonoscopy (2022). Job ID: [id number]
== END 2018-12-25 12:05 | disposition home or self-care (01) ==
LOC: SDC 07:26
PROVIDERS: ATTEND Internal Medicine
PROC: 0DJ08ZZ Inspection of Upper Intestinal Tract, Via Natural or Artificial Opening Endoscopic (ICD-10-PCS; principal; 2018-12-25)
DX: K21.9 Gastro-esophageal reflux disease without esophagitis (principal); Z85.46 Personal history of malignant neoplasm of prostate; Z79.82 Long term (current) use of aspirin; Z79.899 Other long term (current) drug therapy; Z90.3 Acquired absence of stomach [part of]
CPT/HCPCS: 93005; 93010; J0360; J2704

== ENCOUNTER 2019-10-29 06:07 | Outpatient (CLI) | payer MEDICARE, OTHER ==
[2019-10-29 12:04] LABS: #Basophils 0.1 thou/uL (0.0-0.2); #Eosinphils 0.2 thou/uL (0.0-0.7); #Lymphocytes 1.6 thou/uL (1.20-3.40); #Monocytes 0.4 thou/uL (0.11-0.59); #Neutrophils 5.5 thou/uL (1.40-6.50); %Basophils 0.9 % (0.0-1.0); %Eosinophils 2.9 % (0.0-10.0); %Lymphocytes 20.1 % (21.0-51.0); %Monocytes 5.5 % (0.0-10.0); %Neutrophils 70.5 % (42.0-75.0); Hemoglobin 18.3 g/dL (14.0-18.0); Mean Corpuscular HGB CONC 32.2 g/dL (32.0-36.0); Mean Corpuscular Hemoglobin 28.5 pg (27.0-31.0); Mean Corpuscular Volume 88.7 fL (78.0-98.0); Mean Platelet Volume 8.1 fL (7.4-10.4); Platelet Count 179 thou/uL (130-400); RBC Distribution Width 12.4 % (11.5-14.5); Red Blood Cell (RBC) Count 6.41 mill/uL (4.70-6.10); White Blood Cell (WBC) Count 7.7 thou/uL (4.8-10.8)
[2019-10-29 12:44] LABS: Anion Gap 17 mmol/L (10-20); BUN (Urea Nitrogen) 18 mg/dL (8.4-25.7); Calc. Creatinine Clearance 0 mL/min (70-130); Calcium 9.2 mg/dL (7.8-10.44); Carbon Dioxide 23 mmol/L (23-31); Chloride 104 mmol/L (98-107); Estimated GFR-MDRD 60; Glucose 173 mg/dL (80-115); Potassium 3.7 mmol/L (3.5-5.1); Sodium 140 mmol/L (136-145)
[2019-10-29 17:58] LABS: SARS-CoV-2 MS2 Positive; SARS-CoV-2 N Gene Negative; SARS-CoV-2 S Gene Negative; SARS-CoV-2 by NAA Not Detected (NotDetected); SARS-CoV-2 orf1ab Negative
== END 2019-10-29 06:08 | disposition home or self-care (01) ==
LOC: LABBT 06:07
PROVIDERS: ATTEND Internal Medicine Cardiovascular Disease
DX: Z01.818 Encounter for other preprocedural examination (principal); I48.91 Unspecified atrial fibrillation; I48.92 Unspecified atrial flutter; Z20.828 Contact with and (suspected) exposure to other viral communicable diseases
CPT/HCPCS: 80048; 85025; 93005; U0003; 87635; 93010

== ENCOUNTER 2020-01-10 09:01 | Emergency (ER) | payer MEDICARE, OTHER ==
[2020-01-10] MEDS ORDERED: Diltiazem 125 MG/25 ML ONE (09:23)
--- NOTE | 2020-01-10 09:53 | RAD ---
PORTABLE CHEST 1 VIEW: Date: 01/10/2020 Time: 0945 hours HISTORY: Cough. Shortness of breath. Tachycardia. FINDINGS/IMPRESSION: The heart size is mildly enlarged. The lungs are well expanded without lobar consolidation, pneumotho races, or pleural effusions. Please note that plain chest radiographs can be falsely negative in the setting of viral pneumonias. POS: AH
[2020-01-10 10:02] LABS: #Basophils 0.1 thou/uL (0.0-0.2); #Eosinphils 0.2 thou/uL (0.0-0.7); #Lymphocytes 1.1 thou/uL (1.20-3.40); #Monocytes 0.7 thou/uL (0.11-0.59); #Neutrophils 2.6 thou/uL (1.40-6.50); %Basophils 1.2 % (0.0-1.0); %Eosinophils 3.4 % (0.0-10.0); %Lymphocytes 24.1 % (21.0-51.0); %Monocytes 14.6 % (0.0-10.0); %Neutrophils 56.6 % (42.0-75.0); Hemoglobin 16.6 g/dL (14.0-18.0); Mean Corpuscular HGB CONC 32.9 g/dL (32.0-36.0); Mean Corpuscular Hemoglobin 28.7 pg (27.0-31.0); Mean Corpuscular Volume 87.2 fL (78.0-98.0); Mean Platelet Volume 6.9 fL (7.4-10.4); Platelet Count 165 thou/uL (130-400); RBC Distribution Width 13.7 % (11.5-14.5); White Blood Cell (WBC) Count 4.6 thou/uL (4.8-10.8)
[2020-01-10 10:36] LABS: ALT (SGPT) 30 U/L (8-55); AST (SGOT) 29 U/L (5-34); Albumin 4.1 g/dL (3.4-4.8); Alkaline Phosphatase 80 U/L (40-110); Anion Gap 16 mmol/L (10-20); BUN (Urea Nitrogen) 20 mg/dL (8.4-25.7); Bilirubin, Total 0.9 mg/dL (0.2-1.2); Calc. Creatinine Clearance 0 mL/min (70-130); Calcium 8.7 mg/dL (7.8-10.44); Carbon Dioxide 25 mmol/L (23-31); Chloride 102 mmol/L (98-107); Estimated GFR-MDRD 58; Globulin 3.1 g/dL (2.4-3.5); Glucose 150 mg/dL (80-115); Protein, Total 7.2 g/dL (5.8-8.1); Sodium 140 mmol/L (136-145)
[2020-01-10 11:02] LABS: SARS-CoV-2 NAA Rapid Test DETECTED (NotDetected)
== END 2020-01-10 11:30 | disposition home or self-care (01) ==
LOC: ERS 09:01
DX: U07.1 COVID-19 (principal); I48.91 Unspecified atrial fibrillation; K21.9 Gastro-esophageal reflux disease without esophagitis; I10 Essential (primary) hypertension
CPT/HCPCS: 71045; 80053; 84484; 85025; 93005; 96365; 96366; 96376; 99285; U0002

== ENCOUNTER 2020-01-11 08:48 | Inpatient (IN) | payer MEDICARE, OTHER ==
[2020-01-11] MEDS ORDERED: Diltiazem 125 MG/25 ML ONE (09:03)
[2020-01-11] MEDS ORDERED: Aspirin Chewable 81 MG TAB ONE (09:39)
--- NOTE | 2020-01-11 09:39 | RAD ---
EXAM: Chest one view: HISTORY: Chest pain tachycardia prior atrial fibrillation COMPARISON: 01/10/2020 FINDINGS: Mild stable increased bronchovascular markings bilaterally. Heart size: Within normal limits. Lungs: Clear of acute process. No evidence for confluent lobar pneumonia, significant pleural effusion, acute edema, or pneumothorax , or other significant acute process. IMPRESSION: No significant acute intrathoracic disease.
[2020-01-11 09:50] LABS: #Eosinphils 0.1 thou/uL (0.0-0.7); #Lymphocytes 0.9 thou/uL (1.20-3.40); #Monocytes 0.8 thou/uL (0.11-0.59); #Neutrophils 5.5 thou/uL (1.40-6.50); %Basophils 0.3 % (0.0-1.0); %Eosinophils 1.2 % (0.0-10.0); %Lymphocytes 12.9 % (21.0-51.0); %Monocytes 10.4 % (0.0-10.0); %Neutrophils 75.1 % (42.0-75.0); Hemoglobin 16.7 g/dL (14.0-18.0); Mean Corpuscular HGB CONC 33.8 g/dL (32.0-36.0); Mean Corpuscular Volume 88.8 fL (78.0-98.0); Mean Platelet Volume 6.9 fL (7.4-10.4); Platelet Count 147 thou/uL (130-400); RBC Distribution Width 13.7 % (11.5-14.5); Red Blood Cell (RBC) Count 5.56 mill/uL (4.70-6.10); White Blood Cell (WBC) Count 7.3 thou/uL (4.8-10.8)
[2020-01-11 09:56] LABS: PTT 33.3 sec (22.9-36.1); Prothrombin Time 13.2 sec (12.0-14.7)
[2020-01-11 09:57] LABS: D-Dimer Test 0.29 *mcg/mL (0.27-0.43)
[2020-01-11 10:14] LABS: ALT (SGPT) 26 U/L (8-55); AST (SGOT) 26 U/L (5-34); Albumin 3.8 g/dL (3.4-4.8); Alkaline Phosphatase 70 U/L (40-110); Anion Gap 11 mmol/L (10-20); BUN (Urea Nitrogen) 16 mg/dL (8.4-25.7); Bilirubin, Total 0.9 mg/dL (0.2-1.2); Calc. Creatinine Clearance 0 mL/min (70-130); Calcium 8.2 mg/dL (7.8-10.44); Carbon Dioxide 26 mmol/L (23-31); Chloride 104 mmol/L (98-107); Globulin 2.7 g/dL (2.4-3.5); Glucose 110 mg/dL (80-115); Potassium 3.4 mmol/L (3.5-5.1); Protein, Total 6.5 g/dL (5.8-8.1); Sodium 138 mmol/L (136-145)
[2020-01-11] MEDS ORDERED: Potassium Chloride 20 MEQ in Premix Bag 1 BAG IVPB SCH (11:30)
[2020-01-11 11:42] LABS: Bilirubin Negative (Negative); Blood, Urine Negative (Negative); Clarity Clear (Clear); Glucose, Urine (Dipstick) Normal (Negative); Ketone, Urine Negative (Negative); Leukocyte Negative Leu/uL (Negative); Nitrite Negative (Negative); Protein, Urine (Dipstick) Negative (Neg-Trace); Specific Gravity, Urine 1.014 (1.002-1.036); Urobilinogen Normal mg/dL (Less than 2); pH, Urine 6.5 (5.0-9.0)
--- NOTE | 2020-01-11 12:22 | PDOC.HHP ---
Hospitalist HPI - History of Present Illness History of Present Illness: ADMISSION DATE: 01/11/2020 TIME OF ASSESSMENT: 1100 PRIMARY CARE PHYSICIAN: Gracia CHIEF COMPLAINT: Rapid heart rate HPI: Patient is a 69-year-old male with past medical history significant for arrhythmias and watchman device. He presents to the ER today for feeling tachycardic after his shower this morning. Yesterday he was seen in the ER for atrial fibrillation and converted back to sinus rhythm after a Cardizem IV push. This morning when he got into the shower his heart rate was in the 50s but when he got out his watch stated that he was in the 170s. He did feel slightly short of breath and had slight chest pain with this event. He was transported to the hospital via EMS. They started a Cardizem drip after IV push of Cardizem en route to the hospital. Once his heart rate began to be more controlled the patient no longer experiences shortness of breath or chest pain and fluttering. Patient did test positive for COVID-19 yesterday. He denies any fevers, stomach discomfort, shortness of breath not associated with this event. Patient did state he had a slight cough yesterday with yellow phlegm so he switch to Zyrtec-D versus the regular Zyrtec that he normally takes. Patient also endorses pedal edema, he states this has been an on and off problem with his amlodipine and has been more prominent lately. ED COURSE: Vital Signs: Blood pressure 125/82, pulse 77, respiratory rate 20, O2 sat 94% on room air Patient presented to the ER via EMS. EMS had given patient 20 mg Cardizem bolus and initiated Cardizem drip at 5 mg/h, initial heart rate was 165. Blood pressure went from initially being 120/70 to 99/50 after the Cardizem bolus so he was given a 500 mL normal saline bolus. This returned his blood pressure to 120s/80s. In the ER he had completed a chest x-ray, EKG, and lab work. In the ER he was administered potassium 20 mEq IV, aspirin 243 mg p.o., 1 L of normal saline, and Cardizem 5 mg/h IV. PAST MEDICAL HISTORY: Arrhythmia, atrial fibrillation/atrial flutter, GERD, stomach cancer and prostate cancerin remission for both, hypertension, varicose veins PAST SURGICAL HISTORY: Prostatectomy, tonsillectomy, stomach surgery for cancer, cardiac ablations x3, back surgery L5-S1 SOCIAL HISTORY: Patient lives at home with his . He denies any smoking, drug, alcohol use. FAMILY HISTORY: Noncontributory ALLERGIES: No known allergies CURRENT MEDICATIONS: Aspirin 81 mg daily Zyrtec 10 mg daily Flecainide 50 mg 2 tabs daily Losartan 100 mg daily Amlodipine 10 mg daily Hydrochlorothiazide 25 mg daily Carvedilol 6.25 mg daily Hospitalist ROS - Review of Systems Respiratory: reports: cough Cardiovascular: reports: chest pain, palpitations, edema All other systems reviewed; all pertinent +/- noted in HPI/Subj - Exam General Appearance: NAD, awake alert ENT: normocephalic atraumatic, no oropharyngeal lesions Neck: supple Heart: no murmur, normal peripheral pulses, irregular Heart - other findings: S3 present Respiratory: CTAB, no wheezes, no rales, no ronchi Gastrointestinal: soft, non-tender, non-distended, normal bowel sounds Extremities: 2+ LE edema Psychiatric: normal affect, normal behavior, A&O x 3 Hospitalist Results - Labs Result Diagrams: 01/11/20 09:36 01/11/20 09:36 Lab results: WBC 7.3 thou/uL (4.8-10.8) 01/11/20 09:36 Hgb 16.7 g/dL (14.0-18.0) 01/11/20 09:36 Hct 49.4 % (42.0-52.0) 01/11/20 09:36 MCV 88.8 fL (78.0-98.0) 01/11/20 09:36 Plt Count 147 thou/uL (130-400) 01/11/20 09:36 Neutrophils % 75.1 % (42.0-75.0) H 01/11/20 09:36 Sodium 138 mmol/L (136-145) 01/11/20 09:36 Potassium 3.4 mmol/L (3.5-5.1) L 01/11/20 09:36 Chloride 104 mmol/L (98-107) 01/11/20 09:36 Carbon Dioxide 26 mmol/L (23-31) 01/11/20 09:36 BUN 16 mg/dL (8.4-25.7) 01/11/20 09:36 Creatinine 1.06 mg/dL (0.7-1.3) 01/11/20 09:36 Glucose 110 mg/dL (80-115) 01/11/20 09:36 Calcium 8.2 mg/dL (7.8-10.44) 01/11/20 09:36 Total Bilirubin 0.9 mg/dL (0.2-1.2) 01/11/20 09:36 AST 26 U/L (5-34) 01/11/20 09:36 ALT 26 U/L (8-55) 01/11/20 09:36 Alkaline Phosphatase 70 U/L (40-110) 01/11/20 09:36 Troponin I 0.011 ng/mL (< 0.028) 01/11/20 09:36 B-Natriuretic Peptide 15.1 pg/mL (0-100) 01/11/20 09:36 Serum Total Protein 6.5 g/dL (5.8-8.1) 01/11/20 09:36 Albumin 3.8 g/dL (3.4-4.8) 01/11/20 09:36 Urine Ketones Negative mg/dL (Negative) 01/11/20 11:07 Urine Blood Negative (Negative) 01/11/20 11:07 Urine Nitrite Negative (Negative) 01/11/20 11:07 Ur Leukocyte Esterase Negative Jewel/uL (Negative) 01/11/20 11:07 - EKG Interpretation EKG: SR 1st degree AVB 119bpm - Radiology Interpretation Chest x-ray Status: image reviewed by me, report reviewed by me Additional Comment: FINDINGS: Mild stable increased bronchovascular markings bilaterally. Heart size: Within normal limits. Lungs: Clear of acute process. No evidence for confluent lobar pneumonia, significant pleural effusion, acute edema, or pneumothorax, or other significant acute process. IMPRESSION: No significant acute intrathoracic disease. Hospitalist H&P A/P - Plan Plan: A. fib with RVR Continue Cardizem 5 mg/hr Discussed patient with EP, Dr. Lundy to increase flecainide to 100 mg p.o. twice daily Continue home dose of Coreg COVID-19 Diagnosed yesterday, currently asymptomatic Hypertension Continue home medications Consider decreasing amlodipine due to patient's lower extremity edema Central sleep apnea May use home sleep respirator GERD Continue home medications VT prophylaxis with SCDs and patient has watchman device CODE STATUS: Full Surrogate decision maker is his or his sonLei Patient and plan have been discussed with Dr. Doan and Dr. Goldman
[2020-01-11] MEDS ORDERED: Diltiazem 125 MG in Sodium Chloride 0.9% 100 ML IVPB SCH (13:15)
[2020-01-11 13:24] LABS: Troponin I Less than 0.010 ng/mL (< 0.028)
[2020-01-11 15:11] VITALS: BMI 35.8
[2020-01-11 15:42] LABS: Troponin I 0.013 ng/mL (< 0.028)
[2020-01-11] MEDS ORDERED: Potassium Chloride 20 MEQ TAB PO SCH (15:45)
[2020-01-11] MEDS: Flecainide 50 MG TAB PO SCH (20:45)
[2020-01-12 05:21] LABS: #Eosinphils 0.1 thou/uL (0.0-0.7); #Lymphocytes 1.4 thou/uL (1.20-3.40); #Monocytes 0.7 thou/uL (0.11-0.59); #Neutrophils 3.3 thou/uL (1.40-6.50); %Basophils 0.8 % (0.0-1.0); %Eosinophils 1.7 % (0.0-10.0); %Lymphocytes 24.7 % (21.0-51.0); %Monocytes 12.8 % (0.0-10.0); Hemoglobin 16.1 g/dL (14.0-18.0); Mean Corpuscular HGB CONC 34.4 g/dL (32.0-36.0); Mean Corpuscular Hemoglobin 30.4 pg (27.0-31.0); Mean Corpuscular Volume 88.2 fL (78.0-98.0); Mean Platelet Volume 6.8 fL (7.4-10.4); Platelet Count 157 thou/uL (130-400); RBC Distribution Width 13.7 % (11.5-14.5); Red Blood Cell (RBC) Count 5.32 mill/uL (4.70-6.10); White Blood Cell (WBC) Count 5.5 thou/uL (4.8-10.8)
[2020-01-12 05:40] LABS: Anion Gap 14 mmol/L (10-20); BUN (Urea Nitrogen) 17 mg/dL (8.4-25.7); Calc. Creatinine Clearance 103 mL/min (70-130); Calcium 8.5 mg/dL (7.8-10.44); Carbon Dioxide 28 mmol/L (23-31); Chloride 102 mmol/L (98-107); Glucose 98 mg/dL (80-115); Potassium 3.6 mmol/L (3.5-5.1); Sodium 140 mmol/L (136-145)
--- NOTE | 2020-01-12 07:20 | CON ---
DATE OF CONSULTATION: 01/11/[address] Swathi Akhtar, as well as current nurse practitioner is Layne Mcneil. HISTORY OF PRESENT ILLNESS: I saw Mr. Hawk at our [facility] telemetry floor as Electrophysiology process consultant. His problems are; 1. Recurrent atrial arrhythmias. a. History of persistent atrial fibrillation and flutter status post repeat ablation including CTI ablation in 2018 and also multiple left atrial ablation including most recently in November 05, 2019. b. Recurrence of atrial flutter prompted resuming flecainide. c. Current admission with rapid rates prompted. 2. History of Watchman placement with adequate sealing in the past. 3. COVID serology from 01/10/2020 is positive. ALLERGIES: NONE. MEDICATIONS: Prior to admission reveals; 1. Flecainide 100 mg twice a day. 2. Coreg 6.25 mg twice a day. 3. Diltiazem. 4. Aspirin 81 mg daily. 5. Hydrochlorothiazide. 6. Claritin. 7. Losartan. 8. Pantoprazole. 9. Protonix. 10. Potassium chloride. SUBJECTIVE: Mr. Hawk is here due to rapid palpitations. He woke up in the morning, his heart rates were 180s. He did not pass out. No chest pains. No stroke like symptoms. No neurological deficits. In the ER, he was found to be in atrial flutter with variable AV conduction. He was subsequently admitted on diltiazem drip. Currently his heart rates are more stabilized in the 80 beats per minute range and seems to be doing fair. Past history as above. He has visited the ER yesterday at which point, also initially atrial fibrillation was seen, though later EKGs suggest an organized atrial flutter atypical with atrial cycle length approximately 400 milliseconds. The ventricular rate is about 80 beats per minute. SOCIAL HISTORY: The patient denies smoking, EtOH, or drug abuse. PAST MEDICAL HISTORY: Past history also includes prostate cancer and stomach cancer in remission for both, hypertension, varicose veins, and GERD. PAST SURGICAL HISTORY: Significant for stomach cancer and prostate cancer surgery and back surgery. FAMILY HISTORY: Not contributory. OBJECTIVE DATA: VITAL SIGNS: Blood pressure is 135/83, heart rate 110, respirations 20, and temperature 99 degrees Fahrenheit on admission. GENERAL: Alert and oriented man, with elevated BMI. NECK: Supple. Jugular veins not distended. CHEST: Coarse without crackles. HEART: Sounds are regular to rate and rhythm. No murmur or gallop. ABDOMEN: Benign. Bowel sounds positive. EXTREMITIES: Lower extremities without edema, clubbing, or cyanosis. NEUROLOGIC: The patient is nonfocal. MUSCULOSKELETAL: Without joint swelling or deformity. SKIN: Without rash. DATABASE: EKG is reviewed from this admission revealing an atrial flutter with atrial rate about 400 milliseconds and ventricular rate is about 119 beats per minute. LABORATORY DATA: White cell count 7.3, hemoglobin 16.7, and platelet count 147. Sodium 138, potassium 3.4, BUN is 16, creatinine 1.06, and CO2 is 26. troponin I 0.011. Chest x-ray shows no acute abnormalities. A COVID serology from 01/10/2020 is positive. ASSESSMENT AND PLAN: Mr. Hawk is a pleasant 69-year-old man with prior history of preserved LVEF, recurrent atrial arrhythmias, who had repeated left and right atrial ablations most recently on November 05, [address] Ballard in [place]. Hence, the recurrent atrial arrhythmias, he has been using flecainide even post ablation, which has recently increased to 100 mg twice a day about a week ago despite he had continued rapid rates. So far, he has received about three days worth of increased flecainide 100 mg twice a day. No cardioversion seen. No high-grade AV block is noted in his EKG. QRS duration is still at 112 milliseconds. At this point, I will attempt to further increase the flecainide to 150 mg twice a day. Continue IV diltiazem, which could be switched to p.o. 30 mg q.6 will be initiated. Should the patient convert back to sinus rhythm, monitor for bradyarrhythmia, which he has a history of. No conversion occurs. Cardioversion could be contemplated. History of Watchman placement with adequate sealing in the past. No anticoagulation will be necessary. COVID infection currently not significantly symptomatic as per primary team. Job ID: [id number] [facility]
[2020-01-12] MEDS: Flecainide 50 MG TAB PO SCH (07:53)
[2020-01-12] MEDS ORDERED: Loratadine 10 MG TAB PO SCH (09:00)
[2020-01-12] MEDS ORDERED: Aspirin 81 mg Enteric Coated Tablet PO SCH (09:00)
[2020-01-12] MEDS ORDERED: Losartan 25 MG TAB PO SCH (09:00)
[2020-01-12] MEDS ORDERED: Hydrochlorothiazide 25 MG TAB PO SCH (09:00)
[2020-01-12] MEDS ORDERED: Carvedilol 6.25 MG TAB PO SCH (09:00)
[2020-01-12] MEDS ORDERED: Multivit, Therapeutic 1 TAB PO SCH (09:00)
[2020-01-12 12:31] VITALS: BP 136/78; TEMP 98.3
[2020-01-12] MEDS ORDERED: Flecainide 50 MG TAB PO SCH ×2 (14:15→21:00)
--- NOTE | 2020-01-12 18:20 | PDOC.DS.DS ---
Provider - Provider Date of Admission: 01/11/20 11:55 Date of Discharge: 01/12/20 Admitting Provider: Radha Doan MD Primary Care Physician: Pallavi Fagan MD Course - Hospital Course Hospital Course: This is a 69-year-old male patient with a history of A. fib status post ablation and watchman procedure who presented over the past couple of days with palpitati ons and increased heart rate. He had a recent diagnosis of COVID-19 however is asymptomatic respiratorily He was admitted and started on Cardizem drip and subsequently converted to oral Cardizem. His flecainide was continued at home dose of 100 mg twice daily Telemetry monitoring was done his heart rate was within normal range and showed some atrial tachycardia. Electrophysiology reviewed. On the day of discharge cardiology also reviewed and recommended discharge. He would go home on flecainide 100 mg twice daily with diltiazem 30 mg every 4 hours new medication. He will follow up with electrophysiology in 3 days. Resuscitation Status: 01/11/20 12:01 Resuscitation Status Routine Co-Sign Provider: Resuscitation Status: FULL: Full Resuscitation Discussed with: pt - Labs Lab Results: 01/12/20 04:50 01/12/20 04:50 Abnormal Lab Results - Last 48 hrs 01/11/20 09:36: Potassium 3.4 L 01/11/20 09:36: MPV 6.9 L, Neutrophils % 75.1 H, Lymphocytes % 12.9 L, Monocytes % 10.4 H, Lymphocytes # 0.9 L, Monocytes # 0.8 H 01/12/20 04:50: MPV 6.8 L, Monocytes % 12.8 H, Monocytes # 0.7 H - Physical Exam Vitals: Vital Signs (12 hours) Temp Pulse Resp BP BP Pulse Ox 01/12/20 12:30 98.3 F 77 20 136/78 96 01/12/20 08:05 97.8 F 82 18 140/86 96 Weight Weight 264 lb Physical Exam: The patient was seen and examined on the day of discharge. Problem - Discharge Plan Assessment: A. fib with RVR Resolved and currently rate controlled on diltiazem/carvedilol. He will follow up with a face for further management Covid 19 infection No respiratory symptoms at the moment. He would go home and isolate. Advised to return once symptoms showed up with shortness of breath and hypoxia. Hypertension Home medications started Amlodipine was held with initiation of diltiazem Plan - Discharge Medications Prescriptions: Diltiazem HCl [Cardizem] 30 mg PO QID #120 tab Carvedilol [Coreg] 6.25 mg PO BID #60 tablet Flecainide [Tambocor] 100 mg PO BID #60 tab Home Medications: Medication Instructions Recorded Confirmed Type Cetirizine HCl [Zyrtec] 10 mg PO DAILY 03/09/16 01/11/20 History Lansoprazole [Prevacid] 15 mg PO DAILY 03/09/16 01/11/20 History Multivitamin [Multivitamins] 1 cap PO DAILY 03/09/16 01/11/20 History Aspirin [Ecotrin Low Strength] 81 mg PO DAILY 12/22/18 01/11/20 History Hydrochlorothiazide 25 mg PO DAILY 01/11/20 01/11/20 History Losartan Potassium 100 mg PO DAILY 01/11/20 01/11/20 History Carvedilol [Coreg] 6.25 mg PO BID #60 tablet 01/12/20 Rx Diltiazem HCl [Cardizem] 30 mg PO QID #120 tab 01/12/20 Rx Flecainide [Tambocor] 100 mg PO BID #60 tab 01/12/20 Rx Allergies: No Known Allergies Allergy (Verified 01/11/20 12:21) - Discharge Instructions Nourishment:: Heart Healthy Diet - Follow up Plan Referrals: Pallavi Fagan MD [Primary Care Provider] - Kenny Goldman MD [Boiler Tube Reamer] - Disposition: HOME Quality - Care Measures CORE MEASURES:: N/A
== END 2020-01-12 16:15 | disposition home or self-care (01) | DRG 308 ==
LOC: ERS 08:48 → 2SW 11:55
PROVIDERS: ADMIT Internal Medicine; ATTEND Internal Medicine
PROC: 8E0ZXY6 Isolation (ICD-10-PCS; principal; 2020-01-11)
DX: I48.91 Unspecified atrial fibrillation (principal); U07.1 COVID-19; K21.9 Gastro-esophageal reflux disease without esophagitis; G47.31 Primary central sleep apnea; I48.92 Unspecified atrial flutter; I10 Essential (primary) hypertension; Z90.79 Acquired absence of other genital organ(s); Z90.89 Acquired absence of other organs; Z79.82 Long term (current) use of aspirin; Z79.899 Other long term (current) drug therapy; Z85.038 Personal history of other malignant neoplasm of large intestine
CPT/HCPCS: 36415; 71045; 80048; 80053; 81003; 83735; 83880; 84484; 85025; 85379; 85610; 85730; 93005; 94760; 96365; 96366; 96376; J3480; U0002

== ENCOUNTER 2020-05-30 11:05 | Emergency (ER) | payer MEDICARE, OTHER ==
[2020-05-30] MEDS ORDERED: Aspirin Chewable 81 MG TAB ONE (11:21)
[2020-05-30 11:34] LABS: #Eosinphils 0.3 thou/uL (0.0-0.7); #Lymphocytes 1.5 thou/uL (1.20-3.40); #Monocytes 0.5 thou/uL (0.11-0.59); #Neutrophils 4.5 thou/uL (1.40-6.50); %Basophils 0.5 % (0.0-1.0); %Eosinophils 4.8 % (0.0-10.0); %Lymphocytes 21.2 % (21.0-51.0); %Monocytes 7.8 % (0.0-10.0); %Neutrophils 65.7 % (42.0-75.0); Mean Corpuscular HGB CONC 33.4 g/dL (32.0-36.0); Mean Corpuscular Hemoglobin 28.7 pg (27.0-31.0); Mean Corpuscular Volume 85.9 fL (78.0-98.0); Mean Platelet Volume 6.9 fL (7.4-10.4); Platelet Count 171 thou/uL (130-400); RBC Distribution Width 12.8 % (11.5-14.5); Red Blood Cell (RBC) Count 6.28 mill/uL (4.70-6.10); White Blood Cell (WBC) Count 6.9 thou/uL (4.8-10.8)
[2020-05-30 12:00] LABS: ALT (SGPT) 25 U/L (8-55); AST (SGOT) 29 U/L (5-34); Albumin 4.1 g/dL (3.4-4.8); Alkaline Phosphatase 84 U/L (40-110); Anion Gap 14 mmol/L (10-20); BUN (Urea Nitrogen) 14 mg/dL (8.4-25.7); Bilirubin, Total 1.3 mg/dL (0.2-1.2); Calc. Creatinine Clearance 0 mL/min (70-130); Calcium 9.6 mg/dL (7.8-10.44); Carbon Dioxide 26 mmol/L (23-31); Chloride 102 mmol/L (98-107); Globulin 2.9 g/dL (2.4-3.5); Glucose 102 mg/dL (80-115); Potassium 3.6 mmol/L (3.5-5.1); Sodium 138 mmol/L (136-145)
[2020-05-30] MEDS ORDERED: Fentanyl 100 MCG/2 ML VIAL ONE (13:36)
[2020-05-30] MEDS ORDERED: Midazolam HCl 5 mg/ml Vial ONE (13:36)
[2020-05-30] MEDS ORDERED: Naloxone HCl 0.4 mg/ml Vial ONE (14:03)
== END 2020-05-30 15:11 | disposition home or self-care (01) ==
LOC: ERS 11:05
DX: I48.92 Unspecified atrial flutter (principal); I97.89 Other postprocedural complications and disorders of the circulatory system, not elsewhere classified; I16.9 Hypertensive crisis, unspecified; I48.91 Unspecified atrial fibrillation; I10 Essential (primary) hypertension; K21.9 Gastro-esophageal reflux disease without esophagitis; Z79.899 Other long term (current) drug therapy; Z79.82 Long term (current) use of aspirin; Z85.46 Personal history of malignant neoplasm of prostate; Z85.028 Personal history of other malignant neoplasm of stomach
CPT/HCPCS: 36415; 71045; 80053; 84484; 85025; 92961; 93005; 96374; 96375; 99152; 99153; J2250; J2310; J3010

== ENCOUNTER 2020-09-17 05:52 | Day surgery (SDC) | payer MEDICARE, OTHER ==
[2020-09-16 13:05] VITALS: BMI 35.2
[2020-09-17] MEDS ORDERED: Fentanyl 100 MCG/2 ML VIAL ONE (07:02)
[2020-09-17] MEDS ORDERED: Glycopyrrolate 0.2 MG/ML 5 ML SYRINGE ONE (07:23)
[2020-09-17] MEDS ORDERED: Ondansetron PF 4 MG/2 ML Vial ONE (07:58)
[2020-09-17] MEDS ORDERED: PROPOFOL 200 MG/20 ML VIAL ONE (07:58)
[2020-09-17] MEDS ORDERED: Lidocaine 1% PF 5 ML VIAL ONE (07:58)
[2020-09-17] MEDS ORDERED: CEFAZOLIN 1 GM VIAL ONE (11:26)
[2020-09-17] MEDS ORDERED: Gentamicin 80 MG/2 ML VIAL ONE (11:26)
[2020-09-17] MEDS ORDERED: Lidocaine 1% (PF) 30 ML VIAL ONE (11:26)
[2020-09-17] MEDS ORDERED: Midazolam HCl 2 mg/2 ml Vial ONE (12:36)
[2020-09-17] MEDS ORDERED: hydrALAZINE 20 MG/ML VIAL ONE (13:13)
== END 2020-09-17 17:06 | disposition home or self-care (01) ==
LOC: CCL 05:52
PROVIDERS: ATTEND Internal Medicine Cardiovascular Disease
PROC: 0JH606Z Insertion of Pacemaker, Dual Chamber into Chest Subcutaneous Tissue and Fascia, Open Approach (ICD-10-PCS; principal; 2020-09-17)
PROC: 02H63JZ Insertion of Pacemaker Lead into Right Atrium, Percutaneous Approach (ICD-10-PCS; 2020-09-17)
PROC: 02HK3JZ Insertion of Pacemaker Lead into Right Ventricle, Percutaneous Approach (ICD-10-PCS; 2020-09-17)
PROC: B246ZZ4 Ultrasonography of Right and Left Heart, Transesophageal (ICD-10-PCS; 2020-09-17)
DX: I49.5 Sick sinus syndrome (principal); I48.19 Other persistent atrial fibrillation; I48.92 Unspecified atrial flutter; Z86.73 Personal history of transient ischemic attack (TIA), and cerebral infarction without residual deficits; Z79.01 Long term (current) use of anticoagulants; Z79.899 Other long term (current) drug therapy; Z95.818 Presence of other cardiac implants and grafts; I08.3 Combined rheumatic disorders of mitral, aortic and tricuspid valves
CPT/HCPCS: 33208; 33230; 71045; 93005; 93010; 93312; 99152; C1785; C1898; J0360; J0690; J1580; J2001; J2250; J2405; J2704; J3010

== ENCOUNTER 2020-09-24 15:28 | Observation (INO) | payer MEDICARE, OTHER ==
[2020-09-24] MEDS ORDERED: hydrALAZINE 20 MG/ML VIAL ONE (15:52)
[2020-09-24] MEDS ORDERED: Nitroglycerin 2% Ointment 1 INCH/1 GM Packet ONE (15:52)
[2020-09-24 16:05] LABS: #Basophils 0.1 thou/uL (0.0-0.2); #Eosinphils 0.2 thou/uL (0.0-0.7); #Lymphocytes 1.4 thou/uL (1.20-3.40); #Monocytes 0.5 thou/uL (0.11-0.59); #Neutrophils 5.5 thou/uL (1.40-6.50); %Basophils 0.7 % (0.0-1.0); %Eosinophils 2.6 % (0.0-10.0); %Lymphocytes 18.2 % (21.0-51.0); %Monocytes 6.2 % (0.0-10.0); %Neutrophils 72.4 % (42.0-75.0); Hemoglobin 16.6 g/dL (14.0-18.0); Mean Corpuscular HGB CONC 34.7 g/dL (32.0-36.0); Mean Corpuscular Hemoglobin 30.7 pg (27.0-31.0); Mean Corpuscular Volume 88.4 fL (78.0-98.0); Mean Platelet Volume 6.6 fL (7.4-10.4); Platelet Count 183 thou/uL (130-400); RBC Distribution Width 13.8 % (11.5-14.5); Red Blood Cell (RBC) Count 5.42 mill/uL (4.70-6.10); White Blood Cell (WBC) Count 7.6 thou/uL (4.8-10.8)
[2020-09-24 16:30] LABS: ALT (SGPT) 17 U/L (8-55); AST (SGOT) 18 U/L (5-34); Albumin 4.2 g/dL (3.4-4.8); Alkaline Phosphatase 85 U/L (40-110); Anion Gap 12 mmol/L (10-20); BUN (Urea Nitrogen) 16 mg/dL (8.4-25.7); Bilirubin, Total 0.8 mg/dL (0.2-1.2); Calc. Creatinine Clearance 0 mL/min (70-130); Calcium 9.5 mg/dL (7.8-10.44); Carbon Dioxide 29 mmol/L (23-31); Chloride 105 mmol/L (98-107); Globulin 2.7 g/dL (2.4-3.5); Glucose 94 mg/dL (83-110); Potassium 4.2 mmol/L (3.5-5.1); Protein, Total 6.9 g/dL (5.8-8.1); Sodium 142 mmol/L (136-145)
[2020-09-24 19:39] VITALS: BMI 35.6
[2020-09-24 20:14] LABS: Troponin I Less than 0.010 ng/mL (< 0.028)
[2020-09-24] MEDS ORDERED: Loratadine 10 MG TAB PO PRN (21:08)
[2020-09-24 23:11] LABS: Troponin I Less than 0.010 ng/mL (< 0.028)
[2020-09-24] MEDS: Apixaban 5 MG TAB PO SCH (23:36)
[2020-09-24] MEDS: Carvedilol 3.125 MG TAB PO SCH (23:36)
[2020-09-24] MEDS ORDERED: Nitroglycerin 2% Ointment 1 INCH/1 GM Packet TOP SCH (23:59)
[2020-09-25] MEDS ORDERED: traMADol HCl 50 MG TAB PO PRN (00:14)
[2020-09-25] MEDS: Carvedilol 3.125 MG TAB PO SCH (08:33)
[2020-09-25] MEDS: Apixaban 5 MG TAB PO SCH (08:34)
[2020-09-25] MEDS ORDERED: Flecainide 50 MG TAB PO SCH ×2 (08:45→21:00)
[2020-09-25] MEDS ORDERED: Losartan 25 MG TAB PO SCH ×2 (09:00→21:00)
[2020-09-25] MEDS ORDERED: Amlodipine 5 MG TAB PO SCH (09:00)
[2020-09-25] MEDS ORDERED: Aspirin 81 mg Enteric Coated Tablet PO SCH (09:00)
[2020-09-25 11:07] VITALS: BP 124/66; TEMP 98
[2020-09-25 12:42] LABS: SARS-CoV-2 PCR by NAA Not Detected (NotDetected)
[2020-09-25] MEDS ORDERED: Carvedilol 6.25 MG TAB PO SCH (21:00)
== END 2020-09-25 14:08 | disposition home or self-care (01) ==
LOC: ERS 15:28 → 2NO 17:43
PROVIDERS: ADMIT Internal Medicine; ATTEND Hospitalist
DX: I16.0 Hypertensive urgency (principal); I10 Essential (primary) hypertension; I48.0 Paroxysmal atrial fibrillation; R60.0 Localized edema; Z66 Do not resuscitate; Z86.73 Personal history of transient ischemic attack (TIA), and cerebral infarction without residual deficits; Z79.01 Long term (current) use of anticoagulants; Z79.82 Long term (current) use of aspirin; Z79.899 Other long term (current) drug therapy; Z95.0 Presence of cardiac pacemaker; Z95.818 Presence of other cardiac implants and grafts; Z20.822 Contact with and (suspected) exposure to COVID-19
CPT/HCPCS: 80053; 83880; 84484 ×2; 84550; 85025; 93005; 93970; 96374; 99285; U0003; U0005; 36415; G0378; J0360

== ENCOUNTER 2020-09-26 10:47 | Outpatient (CLI) | payer MEDICARE, OTHER | END 2020-09-26 10:48 | disposition home or self-care (01) | LOC: BICRAD 10:47 | PROVIDERS: ATTEND Internal Medicine | DX: M79.671 Pain in right foot (principal); M19.071 Primary osteoarthritis, right ankle and foot ==

== ENCOUNTER 2020-10-11 12:25 | Emergency (ER) | payer MEDICARE, OTHER ==
[2020-10-11 13:17] LABS: #Eosinphils 0.3 thou/uL (0.0-0.7); #Lymphocytes 1.6 thou/uL (1.20-3.40); #Monocytes 0.6 thou/uL (0.11-0.59); #Neutrophils 6.2 thou/uL (1.40-6.50); %Basophils 0.4 % (0.0-1.0); %Eosinophils 3.2 % (0.0-10.0); %Lymphocytes 17.8 % (21.0-51.0); %Monocytes 6.8 % (0.0-10.0); %Neutrophils 71.7 % (42.0-75.0); Hemoglobin 17.8 g/dL (14.0-18.0); Mean Corpuscular HGB CONC 34.4 g/dL (32.0-36.0); Mean Corpuscular Volume 87.2 fL (78.0-98.0); Mean Platelet Volume 6.9 fL (7.4-10.4); Platelet Count 173 thou/uL (130-400); RBC Distribution Width 13.3 % (11.5-14.5); Red Blood Cell (RBC) Count 5.94 mill/uL (4.70-6.10); White Blood Cell (WBC) Count 8.7 thou/uL (4.8-10.8)
[2020-10-11 13:41] LABS: ALT (SGPT) 22 U/L (8-55); AST (SGOT) 20 U/L (5-34); Alkaline Phosphatase 94 U/L (40-110); Anion Gap 11 mmol/L (10-20); BUN (Urea Nitrogen) 15 mg/dL (8.4-25.7); Bilirubin, Total 0.9 mg/dL (0.2-1.2); Calc. Creatinine Clearance 0 mL/min (70-130); Calcium 9.4 mg/dL (7.8-10.44); Carbon Dioxide 26 mmol/L (23-31); Chloride 108 mmol/L (98-107); Globulin 3.1 g/dL (2.4-3.5); Glucose 112 mg/dL (83-110); Magnesium 2.1 mg/dL (1.6-2.6); Phosphorus 2.6 mg/dL (2.3-4.7); Potassium 4.1 mmol/L (3.5-5.1); Protein, Total 7.1 g/dL (5.8-8.1); Sodium 141 mmol/L (136-145)
[2020-10-11] MEDS ORDERED: Carvedilol 6.25 MG TAB PO SCH (15:30)
[2020-10-11] MEDS ORDERED: Diltiazem 125 MG in Sodium Chloride 0.9% 100 ML IVPB SCH ×3 (15:30)
== END 2020-10-11 17:56 | disposition home or self-care (01) ==
LOC: ERS 12:25
DX: I48.11 Longstanding persistent atrial fibrillation (principal); K21.9 Gastro-esophageal reflux disease without esophagitis; I10 Essential (primary) hypertension; Z86.73 Personal history of transient ischemic attack (TIA), and cerebral infarction without residual deficits; Z79.82 Long term (current) use of aspirin; Z79.02 Long term (current) use of antithrombotics/antiplatelets; Z79.899 Other long term (current) drug therapy
CPT/HCPCS: 36415; 80053; 83735; 84100; 85025; 93005; 96365; 96366

== ENCOUNTER 2021-06-08 12:59 | Outpatient (CLI) | payer MEDICARE, OTHER | END 2021-06-08 13:00 | disposition home or self-care (01) | LOC: BICULT 12:59 | PROVIDERS: ATTEND Internal Medicine | DX: E04.2 Nontoxic multinodular goiter (principal) | CPT/HCPCS: 76536 ==

== ENCOUNTER 2021-06-30 12:17 | Day surgery (SDC) | payer MEDICARE, OTHER ==
[2021-06-26 12:31] VITALS: BMI 33.9
[2021-06-30] MEDS ORDERED: Lidocaine 1% PF 5 ML VIAL ONE (12:53)
[2021-06-30] MEDS ORDERED: Sodium Bicarbonate 2.5 MEQ/5 ML VIAL ONE (12:53)
[2021-06-30 13:42] VITALS: BP 148/90; TEMP 98.4
== END 2021-06-30 14:15 | disposition home or self-care (01) ==
LOC: ULT 12:17
PROVIDERS: ATTEND Specialist
PROC: 0G9H3ZX Drainage of Right Thyroid Gland Lobe, Percutaneous Approach, Diagnostic (ICD-10-PCS; principal; 2021-06-30)
DX: E04.1 Nontoxic single thyroid nodule (principal); G47.33 Obstructive sleep apnea (adult) (pediatric); E78.5 Hyperlipidemia, unspecified; Z85.46 Personal history of malignant neoplasm of prostate; Z86.16 Personal history of COVID-19; Z86.73 Personal history of transient ischemic attack (TIA), and cerebral infarction without residual deficits; Z79.01 Long term (current) use of anticoagulants; Z79.82 Long term (current) use of aspirin; Z79.899 Other long term (current) drug therapy; Z95.0 Presence of cardiac pacemaker
CPT/HCPCS: 10005; 88173

== ENCOUNTER 2021-11-10 12:47 | Outpatient (CLI) | payer MEDICARE, OTHER | END 2021-11-10 12:48 | disposition home or self-care (01) | LOC: BICRAD 12:47 | PROVIDERS: ATTEND Internal Medicine | DX: S89.91XA Unspecified injury of right lower leg, initial encounter (principal); M89.8X6 Other specified disorders of bone, lower leg ==

== ENCOUNTER 2022-02-18 03:20 | Inpatient (IN) | payer MEDICARE, OTHER ==
[2022-02-18] MEDS ORDERED: Ondansetron PF 4 MG/2 ML Vial ONE ×2 (03:59→13:52)
[2022-02-18] MEDS ORDERED: Acetaminophen 500 MG TAB ONE (04:12)
[2022-02-18] MEDS ORDERED: Ketorolac Tromethamine 30 MG/ML VIAL ONE (04:12)
[2022-02-18 04:33] LABS: #Eosinphils 0.1 thou/uL (0.0-0.7); #Lymphocytes 0.6 thou/uL (1.20-3.40); #Monocytes 0.3 thou/uL (0.11-0.59); #Neutrophils 12.5 thou/uL (1.40-6.50); %Basophils 0.3 % (0.0-1.0); %Eosinophils 0.8 % (0.0-10.0); %Lymphocytes 4.2 % (21.0-51.0); %Monocytes 1.8 % (0.0-10.0); %Neutrophils 92.8 % (42.0-75.0); Hemoglobin 16.7 g/dL (14.0-18.0); Mean Corpuscular HGB CONC 33.4 g/dL (32.0-36.0); Mean Corpuscular Hemoglobin 28.9 pg (27.0-31.0); Mean Corpuscular Volume 86.6 fl (78.0-98.0); Mean Platelet Volume 7.2 fL (7.4-10.4); Platelet Count 162 10x3/uL (130-400); RBC Distribution Width 13.7 % (11.5-14.5); Red Blood Cell (RBC) Count 5.76 mill/uL (4.70-6.10); White Blood Cell (WBC) Count 13.5 10x3/uL (4.8-10.8)
[2022-02-18 04:53] LABS: ALT (SGPT) 16 U/L (8-55); AST (SGOT) 21 U/L (5-34); Albumin 4.2 g/dL (3.4-4.8); Alkaline Phosphatase 74 U/L (40-110); Anion Gap 15 mmol/L (10-20); BUN (Urea Nitrogen) 20 mg/dL (8.4-25.7); Calc. Creatinine Clearance 0 mL/min (70-130); Calcium 8.8 mg/dL (7.8-10.44); Carbon Dioxide 23 mmol/L (23-31); Chloride 105 mmol/L (98-107); Estimated GFR 54; Globulin 2.4 g/dL (2.4-3.5); Glucose 100 mg/dL (83-110); Potassium 4.2 mmol/L (3.5-5.1); Protein, Total 6.6 g/dL (5.8-8.1); Sodium 139 mmol/L (136-145)
[2022-02-18 05:14] LABS: SARS-CoV-2 NAA Rapid Test Not Detected (NotDetected)
[2022-02-18] MEDS ORDERED: Cefepime 2 GM VIAL ONE (06:18)
[2022-02-18] MEDS ORDERED: Vancomycin 1 GM/200 ML (FROZEN) BAG ONE ×2 (06:18→13:34)
[2022-02-18 06:23] LABS: Bilirubin Negative (Negative); Blood, Urine Negative (Negative); Clarity Clear (Clear); Glucose, Urine (Dipstick) Normal (Negative); Ketone, Urine Trace mg/dL (Negative); Leukocyte Negative Leu/uL (Negative); Nitrite Negative (Negative); Protein, Urine (Dipstick) 20 mg/dL (Neg-Trace); Specific Gravity, Urine 1.021 (1.002-1.036); Urobilinogen Normal mg/dL (Less than 2)
[2022-02-18 08:30] LABS: Lactic Acid 1.9 mmol/L (0.5-2.2)
[2022-02-18] MEDS ORDERED: Ondansetron ODT 4 MG TAB PO PRN (10:43)
[2022-02-18] MEDS ORDERED: Furosemide 20 MG/2 ML VIAL SLOW IVP SCH (10:45)
[2022-02-18] MEDS ORDERED: Electrolyte Replacement Protocol 1 EACH FS SCH (10:45)
[2022-02-18] MEDS ORDERED: Ketorolac Tromethamine 30 MG/ML VIAL IVP PRN (10:46)
[2022-02-18] MEDS ORDERED: Loratadine 10 MG TAB PO PRN (11:14)
[2022-02-18] MEDS ORDERED: Furosemide 20 MG/2 ML VIAL ONE (11:23)
[2022-02-18] MEDS ORDERED: Acetaminophen 325 MG TAB ONE (11:56)
[2022-02-18] MEDS ORDERED: Vancomycin 1 GM in Premix Bag 1 BAG IVPB SCH (13:00)
[2022-02-18] MEDS ORDERED: Iopamidol-370 76% 500 ML 1 ML ONE (15:16)
[2022-02-18] MEDS ORDERED: Sodium Chloride 0.9% 500 ML IV SCH (17:00)
[2022-02-18] MEDS: Cefepime 2 GM in Sodium Chloride 0.9% 100 ML IVPB SCH (18:03)
[2022-02-18] MEDS: Carvedilol 25 MG TAB PO SCH (20:41)
[2022-02-18] MEDS ORDERED: Carvedilol 25 MG TAB PO SCH (21:00)
[2022-02-19] MEDS: Acetaminophen 325 MG TAB PO PRN (00:01)
[2022-02-19] MEDS: Cefepime 2 GM in Sodium Chloride 0.9% 100 ML IVPB SCH (05:44)
[2022-02-19 06:39] LABS: Hemoglobin 14.4 g/dL (14.0-18.0); Mean Corpuscular HGB CONC 33.5 g/dL (32.0-36.0); Mean Corpuscular Hemoglobin 29.1 pg (27.0-31.0); Mean Platelet Volume 7.4 fL (7.4-10.4); Platelet Count 132 10x3/uL (130-400); RBC Distribution Width 13.8 % (11.5-14.5); Red Blood Cell (RBC) Count 4.93 mill/uL (4.70-6.10); White Blood Cell (WBC) Count 17.3 10x3/uL (4.8-10.8)
[2022-02-19 06:59] LABS: Anion Gap 11 mmol/L (10-20); BUN (Urea Nitrogen) 33 mg/dL (8.4-25.7); Calc. Creatinine Clearance 68 mL/min (70-130); Calcium 8.5 mg/dL (7.8-10.44); Carbon Dioxide 22 mmol/L (23-31); Chloride 104 mmol/L (98-107); Estimated GFR 40; Glucose 104 mg/dL (83-110); Magnesium 1.8 mg/dL (1.6-2.6); Potassium 3.8 mmol/L (3.5-5.1); Sodium 133 mmol/L (136-145)
[2022-02-19] MEDS ORDERED: Sodium Chloride 0.9% 500 ML IV SCH (07:45)
[2022-02-19 07:50] LABS: Band 26 % (5-11); Lymphocytes 2 % (21-51); MDiff Complete? YES; Monocytes 2 % (0-10); Neutrophil 69 % (42-75); Platelet Morphology Comment Appears Adequate; RBC Morphology Normal; Reactive Lymphocytes 1 % (0-10)
[2022-02-19] MEDS ORDERED: Magnesium 2 GM/50 ML(in water) 2 GM in Premix Bag 1 BAG IVPB SCH (08:00)
[2022-02-19] MEDS ORDERED: Sodium Chloride 0.9% 100 ML IV SCH (08:07)
[2022-02-19] MEDS: Lactated Ringer's 1,000 ML IV SCH ×3 (08:36→18:11)
[2022-02-19] MEDS: Heparin 5,000 UNITS/ML VIAL SC SCH ×3 (08:37→19:53)
[2022-02-19] MEDS: Aspirin 81 mg Enteric Coated Tablet PO SCH (08:37)
[2022-02-19 08:52] VITALS: BMI 39.2
[2022-02-19] MEDS ORDERED: Furosemide 20 MG/2 ML VIAL SLOW IVP SCH (09:00)
[2022-02-19 10:15] LABS: Creatinine, Urine 265.23 mg/dL (63-166); Protein, Urine Random Quant 28 mg/dL (1-14); Sodium, Urine Less than 20 mmol/L (Not Available)
[2022-02-19 10:19] LABS: Urea Nitrogen, Random Urine Greater than 1200 mg/dl
[2022-02-19] MEDS ORDERED: VANCOMYCIN 2 GRAM/500 ML BAG 2 GM in Premix Bag 1 BAG IVPB SCH (13:00)
[2022-02-19] MEDS: cefTRIAXone\\ROCEPHIN 2 GM in Sodium Chloride 0.9% 100 ML IVPB SCH (14:31)
[2022-02-19] MEDS ORDERED: Electrolyte Replacement Protocol 1 EACH FS PRN (15:35)
[2022-02-19] MEDS ORDERED: Lactated Ringer's 1,000 ML IV SCH (17:12)
[2022-02-19 17:59] LABS: Albumin 3.5 g/dL (3.4-4.8); Anion Gap 12 mmol/L (10-20); BUN (Urea Nitrogen) 31 mg/dL (8.4-25.7); BUN/Creatinine Ratio 18.24; CK (CPK) 196 U/L (30-200); Calc. Creatinine Clearance 73 mL/min (70-130); Calcium 8.5 mg/dL (7.8-10.44); Carbon Dioxide 21 mmol/L (23-31); Chloride 105 mmol/L (98-107); Estimated GFR 42; Glucose 107 mg/dL (83-110); Phosphorus 1.6 mg/dL (2.3-4.7); Sodium 134 mmol/L (136-145)
[2022-02-19 18:17] LABS: Anion Gap 12 mmol/L (10-20); BUN (Urea Nitrogen) 31 mg/dL (8.4-25.7); Calc. Creatinine Clearance 74 mL/min (70-130); Calcium 8.5 mg/dL (7.8-10.44); Carbon Dioxide 20 mmol/L (23-31); Chloride 105 mmol/L (98-107); Estimated GFR 43; Glucose 104 mg/dL (83-110); Potassium 3.9 mmol/L (3.5-5.1); Sodium 133 mmol/L (136-145)
[2022-02-19] MEDS: PHOS-NAK 1 PKT PACK PO SCH (21:28)
[2022-02-20] MEDS: PHOS-NAK 1 PKT PACK PO SCH ×3 (00:58→17:40)
[2022-02-20] MEDS: Lactated Ringer's 1,000 ML IV SCH ×2 (04:40→14:35)
[2022-02-20 07:01] LABS: #Lymphocytes 1.1 thou/uL (1.20-3.40); #Neutrophils 11.7 thou/uL (1.40-6.50); %Eosinophils 0.2 % (0.0-10.0); %Lymphocytes 7.8 % (21.0-51.0); %Monocytes 7.4 % (0.0-10.0); %Neutrophils 84.6 % (42.0-75.0); Hemoglobin 14.5 g/dL (14.0-18.0); Mean Corpuscular HGB CONC 33.2 g/dL (32.0-36.0); Mean Corpuscular Hemoglobin 28.6 pg (27.0-31.0); Mean Corpuscular Volume 86.3 fl (78.0-98.0); Mean Platelet Volume 7.9 fL (7.4-10.4); Platelet Count 126 10x3/uL (130-400); RBC Distribution Width 13.8 % (11.5-14.5); Red Blood Cell (RBC) Count 5.05 mill/uL (4.70-6.10); White Blood Cell (WBC) Count 13.8 10x3/uL (4.8-10.8)
[2022-02-20 07:18] LABS: Anion Gap 13 mmol/L (10-20); BUN (Urea Nitrogen) 20 mg/dL (8.4-25.7); Calc. Creatinine Clearance 102 mL/min (70-130); Calcium 8.3 mg/dL (7.8-10.44); Carbon Dioxide 21 mmol/L (23-31); Chloride 105 mmol/L (98-107); Estimated GFR 63; Glucose 95 mg/dL (83-110); Potassium 3.9 mmol/L (3.5-5.1); Sodium 135 mmol/L (136-145)
[2022-02-20] MEDS: Sodium Bicarbonate Tab 325 MG TAB PO SCH ×3 (08:44→20:19)
[2022-02-20] MEDS: Heparin 5,000 UNITS/ML VIAL SC SCH ×3 (08:44→20:17)
[2022-02-20] MEDS: Aspirin 81 mg Enteric Coated Tablet PO SCH (08:44)
[2022-02-20] MEDS: Carvedilol 25 MG TAB PO SCH ×3 (08:48→20:17)
[2022-02-20] MEDS ORDERED: Polyethylene Glycol 3350 17 GM Packet PO PRN (09:45)
[2022-02-20] MEDS ORDERED: Polyethylene Glycol 3350 17 GM Packet PO SCH (10:00)
[2022-02-20 12:20] LABS: Vancomycin, Trough 3.6 ug/mL
[2022-02-20 13:49] LABS: Phosphorus 1.7 mg/dL (2.3-4.7)
[2022-02-20] MEDS: cefTRIAXone\\ROCEPHIN 2 GM in Sodium Chloride 0.9% 100 ML IVPB SCH (14:30)
[2022-02-20] MEDS: Acetaminophen 325 MG TAB PO PRN (20:35)
[2022-02-20] MEDS ORDERED: Melatonin 3 MG TAB PO SCH (21:45)
[2022-02-21] MEDS: Acetaminophen 325 MG TAB PO PRN (02:38)
[2022-02-21 07:29] LABS: #Neutrophils 8.7 thou/uL (1.40-6.50); %Basophils 0.3 % (0.0-1.0); %Eosinophils 0.4 % (0.0-10.0); %Lymphocytes 9.6 % (21.0-51.0); %Monocytes 9.2 % (0.0-10.0); %Neutrophils 80.5 % (42.0-75.0); Hemoglobin 14.1 g/dL (14.0-18.0); Mean Corpuscular Hemoglobin 28.8 pg (27.0-31.0); Mean Corpuscular Volume 87.4 fl (78.0-98.0); Mean Platelet Volume 7.9 fL (7.4-10.4); Platelet Count 151 10x3/uL (130-400); RBC Distribution Width 13.7 % (11.5-14.5); Red Blood Cell (RBC) Count 4.91 mill/uL (4.70-6.10); White Blood Cell (WBC) Count 10.7 10x3/uL (4.8-10.8)
[2022-02-21 07:58] LABS: ALT (SGPT) 14 U/L (8-55); AST (SGOT) 18 U/L (5-34); Albumin 3.4 g/dL (3.4-4.8); Alkaline Phosphatase 69 U/L (40-110); Anion Gap 12 mmol/L (10-20); BUN (Urea Nitrogen) 16 mg/dL (8.4-25.7); Bilirubin, Total 1.7 mg/dL (0.2-1.2); Calc. Creatinine Clearance 126 mL/min (70-130); Calcium 8.4 mg/dL (7.8-10.44); Carbon Dioxide 23 mmol/L (23-31); Chloride 105 mmol/L (98-107); Estimated GFR 82; Globulin 2.8 g/dL (2.4-3.5); Glucose 107 mg/dL (83-110); Phosphorus 2.3 mg/dL (2.3-4.7); Potassium 3.6 mmol/L (3.5-5.1); Protein, Total 6.2 g/dL (5.8-8.1); Sodium 136 mmol/L (136-145)
[2022-02-21] MEDS ORDERED: Magnesium 2 GM/50 ML(in water) 2 GM in Premix Bag 1 BAG IVPB SCH (08:15)
[2022-02-21] MEDS: Aspirin 81 mg Enteric Coated Tablet PO SCH (09:42)
[2022-02-21] MEDS: Carvedilol 25 MG TAB PO SCH ×2 (09:42→20:51)
[2022-02-21] MEDS: Heparin 5,000 UNITS/ML VIAL SC SCH ×3 (09:42→20:50)
[2022-02-21] MEDS: Sodium Bicarbonate Tab 325 MG TAB PO SCH ×3 (09:42→20:55)
[2022-02-21] MEDS: cefTRIAXone\\ROCEPHIN 2 GM in Sodium Chloride 0.9% 100 ML IVPB SCH (14:07)
[2022-02-22 06:19] LABS: #Eosinphils 0.1 thou/uL (0.0-0.7); #Lymphocytes 1.1 thou/uL (1.20-3.40); #Monocytes 0.9 thou/uL (0.11-0.59); #Neutrophils 6.5 thou/uL (1.40-6.50); %Basophils 0.5 % (0.0-1.0); %Eosinophils 1.1 % (0.0-10.0); %Lymphocytes 12.4 % (21.0-51.0); %Monocytes 10.7 % (0.0-10.0); %Neutrophils 75.4 % (42.0-75.0); Hemoglobin 14.3 g/dL (14.0-18.0); Mean Corpuscular HGB CONC 34.5 g/dL (32.0-36.0); Mean Corpuscular Hemoglobin 29.9 pg (27.0-31.0); Mean Corpuscular Volume 86.9 fl (78.0-98.0); Mean Platelet Volume 7.1 fL (7.4-10.4); Platelet Count 157 10x3/uL (130-400); RBC Distribution Width 13.4 % (11.5-14.5); Red Blood Cell (RBC) Count 4.79 mill/uL (4.70-6.10); White Blood Cell (WBC) Count 8.6 10x3/uL (4.8-10.8)
[2022-02-22 06:45] LABS: Anion Gap 11 mmol/L (10-20); BUN (Urea Nitrogen) 15 mg/dL (8.4-25.7); Calc. Creatinine Clearance 130 mL/min (70-130); Calcium 8.5 mg/dL (7.8-10.44); Carbon Dioxide 23 mmol/L (23-31); Chloride 104 mmol/L (98-107); Estimated GFR 85; Glucose 116 mg/dL (83-110); Magnesium 2.1 mg/dL (1.6-2.6); Potassium 3.7 mmol/L (3.5-5.1); Sodium 134 mmol/L (136-145)
[2022-02-22] MEDS: Heparin 5,000 UNITS/ML VIAL SC SCH ×3 (08:12→13:34)
[2022-02-22] MEDS: Aspirin 81 mg Enteric Coated Tablet PO SCH (08:12)
[2022-02-22] MEDS: Carvedilol 25 MG TAB PO SCH (08:12)
[2022-02-22] MEDS: Sodium Bicarbonate Tab 325 MG TAB PO SCH (08:13)
[2022-02-22] MEDS: cefTRIAXone\\ROCEPHIN 2 GM in Sodium Chloride 0.9% 100 ML IVPB SCH (13:11)
[2022-02-22 16:04] VITALS: BP 146/86; TEMP 97.3
== END 2022-02-22 16:32 | disposition home or self-care (01) | DRG 872 ==
LOC: ERS 03:20 → SUATTDRO 03:20 → ERHOLD 07:01 → T4-B 15:11
PROVIDERS: ADMIT Hospitalist; ATTEND Hospitalist
PROC: 3E03329 Introduction of Other Anti-infective into Peripheral Vein, Percutaneous Approach (ICD-10-PCS; principal; 2022-02-18)
PROC: 02HV33Z Insertion of Infusion Device into Superior Vena Cava, Percutaneous Approach (ICD-10-PCS; 2022-02-22)
PROC: B5181ZA Fluoroscopy of Superior Vena Cava using Low Osmolar Contrast, Guidance (ICD-10-PCS; 2022-02-22)
PROC: B548ZZA Ultrasonography of Superior Vena Cava, Guidance (ICD-10-PCS; 2022-02-22)
DX: A40.1 Sepsis due to streptococcus, group B (principal); L03.115 Cellulitis of right lower limb; N17.9 Acute kidney failure, unspecified; E87.1 Hypo-osmolality and hyponatremia; I50.32 Chronic diastolic (congestive) heart failure; Z20.822 Contact with and (suspected) exposure to COVID-19; G47.33 Obstructive sleep apnea (adult) (pediatric); K21.9 Gastro-esophageal reflux disease without esophagitis; I48.0 Paroxysmal atrial fibrillation; I11.0 Hypertensive heart disease with heart failure; R65.20 Severe sepsis without septic shock; E86.9 Volume depletion, unspecified; Z86.73 Personal history of transient ischemic attack (TIA), and cerebral infarction without residual deficits; Z85.46 Personal history of malignant neoplasm of prostate; Z95.0 Presence of cardiac pacemaker; Z95.818 Presence of other cardiac implants and grafts; Z85.028 Personal history of other malignant neoplasm of stomach; Z79.899 Other long term (current) drug therapy; Z82.3 Family history of stroke; Z80.8 Family history of malignant neoplasm of other organs or systems; Z99.89 Dependence on other enabling machines and devices
CPT/HCPCS: 36415; 36569; 71045; 71275; 80048; 80053; 80202; 81003; 82550; 82570; 83605; 83735; 83880; 84100; 84156; 84300; 84484; 84540; 85025; 85379; 86140; 87040; 87077; 87086; 87149; 87186; 93005; 93306; 93970; C1751; J0692; J0696; J1644; J1885; J1940; J2405; J3370; J3370-JW; J3475; J3490; J7050; J7120; Q9967

== ENCOUNTER 2022-02-23 09:45 | Day surgery (SDC) | payer MEDICARE, OTHER ==
[2022-02-23] MEDS ORDERED: cefTRIAXone\\ROCEPHIN 2 GM in Sodium Chloride 0.9% 100 ML IVPB SCH (10:00)
[2022-02-23] MEDS ORDERED: cefTRIAXone\\ROCEPHIN 2 GM VIAL ONE (10:08)
[2022-02-23] MEDS ORDERED: Sodium Chloride 0.9% 100 ML ONE ×2 (10:09→10:15)
[2022-02-23 10:36] VITALS: BP 148/76; TEMP 97.9
== END 2022-02-23 11:00 | disposition home or self-care (01) ==
LOC: ONC/OP 09:45
PROVIDERS: ATTEND Internal Medicine
DX: L03.115 Cellulitis of right lower limb (principal); L03.116 Cellulitis of left lower limb
CPT/HCPCS: 96365; J0696; J1642; J3490

== ENCOUNTER 2022-03-07 09:19 | Inpatient (IN) | payer MEDICARE, OTHER ==
[2022-03-07] MEDS ORDERED: Heparin 25,000 units/D5W 500 ML ONE (10:08)
[2022-03-07] MEDS ORDERED: traMADol HCl 50 MG TAB PO PRN ×2 (10:56→14:21)
[2022-03-07] MEDS ORDERED: Acetaminophen 500 MG TAB PO PRN (10:56)
[2022-03-07 11:10] LABS: INR-International Normal Ratio 1.1
[2022-03-07 11:12] LABS: PTT 56.6 sec (22.9-36.1)
[2022-03-07 11:13] LABS: #Basophils 0.1 thou/uL (0.0-0.2); #Lymphocytes 0.9 thou/uL (1.20-3.40); #Monocytes 1.2 thou/uL (0.11-0.59); #Neutrophils 14.8 thou/uL (1.40-6.50); %Basophils 0.4 % (0.0-1.0); %Eosinophils 0.1 % (0.0-10.0); %Lymphocytes 5.2 % (21.0-51.0); %Monocytes 6.9 % (0.0-10.0); %Neutrophils 87.4 % (42.0-75.0); Hemoglobin 15.4 g/dL (14.0-18.0); Mean Corpuscular HGB CONC 33.1 g/dL (32.0-36.0); Mean Corpuscular Volume 87.4 fl (78.0-98.0); Mean Platelet Volume 6.9 fL (7.4-10.4); Platelet Count 296 10x3/uL (130-400); RBC Distribution Width 13.9 % (11.5-14.5); Red Blood Cell (RBC) Count 5.32 mill/uL (4.70-6.10); White Blood Cell (WBC) Count 16.9 10x3/uL (4.8-10.8)
[2022-03-07] MEDS ORDERED: Heparin 10,000 UNITS/ 10 ML VIAL SLOW IVP SCH (11:15)
[2022-03-07 11:18] LABS: ALT (SGPT) 39 U/L (8-55); AST (SGOT) 23 U/L (5-34); Albumin 3.7 g/dL (3.4-4.8); Alkaline Phosphatase 76 U/L (40-110); Anion Gap 13 mmol/L (10-20); BUN (Urea Nitrogen) 18 mg/dL (8.4-25.7); Bilirubin, Total 1.5 mg/dL (0.2-1.2); Calc. Creatinine Clearance 0 mL/min (70-130); Calcium 8.8 mg/dL (7.8-10.44); Carbon Dioxide 22 mmol/L (23-31); Chloride 104 mmol/L (98-107); Estimated GFR 78; Globulin 3.2 g/dL (2.4-3.5); Glucose 115 mg/dL (83-110); Potassium 4.1 mmol/L (3.5-5.1); Protein, Total 6.9 g/dL (5.8-8.1); Sodium 135 mmol/L (136-145)
[2022-03-07 11:51] LABS: SARS-CoV-2 NAA Rapid Test Not Detected (NotDetected)
[2022-03-07] MEDS ORDERED: Cefepime 2 GM VIAL ONE (12:00)
[2022-03-07] MEDS ORDERED: traMADol HCl 50 MG TAB ONE ×2 (12:00→14:45)
[2022-03-07] MEDS ORDERED: Morphine 4 MG/ML VIAL ONE ×2 (12:00→16:14)
[2022-03-07] MEDS: Morphine 4 MG/ML VIAL SLOW IVP PRN ×2 (12:11→16:18)
[2022-03-07] MEDS: Heparin 25,000 units/D5W 500 ML IVPB SCH ×2 (12:13→23:18)
[2022-03-07] MEDS ORDERED: Carvedilol 3.125 MG TAB PO SCH (12:15)
[2022-03-07] MEDS: Cefepime 2 GM in Sodium Chloride 0.9% 100 ML IVPB SCH ×2 (12:27→20:39)
[2022-03-07] MEDS ORDERED: Acetaminophen 500 MG TAB ONE (13:53)
[2022-03-07] MEDS ORDERED: traMADol HCl 50 MG TAB PO SCH (14:30)
[2022-03-07] MEDS: Carvedilol 3.125 MG TAB PO SCH (17:05)
[2022-03-07] MEDS ORDERED: FENTANYL 500 MCG/10 ML VIAL 2,000 MCG in Sodium Chloride 0.9% 60 ML IV PRN (19:05)
[2022-03-07] MEDS ORDERED: Ondansetron PF 4 MG/2 ML Vial IVP PRN (19:05)
[2022-03-07] MEDS ORDERED: Promethazine HCl 25 MG/ML VIAL IM PRN (19:05)
[2022-03-07] MEDS ORDERED: Naloxone HCl 0.4 mg/ml Vial IV PRN (19:05)
[2022-03-07] MEDS ORDERED: Zolpidem Tartrate 5 MG TAB PO PRN (19:05)
[2022-03-07] MEDS ORDERED: diphenhydrAMINE 25 MG CAP PO PRN (19:05)
[2022-03-07] MEDS ORDERED: diphenhydrAMINE 50 MG/ML VIAL IVP PRN (19:05)
[2022-03-07] MEDS ORDERED: diphenhydrAMINE 50 MG/ML VIAL IM PRN (19:05)
[2022-03-07] MEDS ORDERED: Fentanyl CADD 100 ML IVPB PRN (19:11)
[2022-03-07] MEDS ORDERED: Communication Order-Pharmacy FS SCH (19:15)
[2022-03-07 20:42] VITALS: BMI 38.4
[2022-03-08] MEDS: Cefepime 2 GM in Sodium Chloride 0.9% 100 ML IVPB SCH ×3 (04:01→20:26)
[2022-03-08 07:01] LABS: Anion Gap 15 mmol/L (10-20); BUN (Urea Nitrogen) 18 mg/dL (8.4-25.7); Calc. Creatinine Clearance 55 mL/min (70-130); Calcium 9.2 mg/dL (7.8-10.44); Carbon Dioxide 19 mmol/L (23-31); Chloride 103 mmol/L (98-107); Estimated GFR 79; Glucose 99 mg/dL (83-110); Potassium 4.7 mmol/L (3.5-5.1); Sodium 132 mmol/L (136-145)
[2022-03-08] MEDS ORDERED: [UNRECOGNIZED DRUG - OTHER] IVPB PRN (08:01)
[2022-03-08 08:23] LABS: Hemoglobin 14.7 g/dL (14.0-18.0); Mean Corpuscular HGB CONC 32.1 g/dL (32.0-36.0); Mean Corpuscular Hemoglobin 28.6 pg (27.0-31.0); Mean Corpuscular Volume 89.1 fl (78.0-98.0); Mean Platelet Volume 6.9 fL (7.4-10.4); Platelet Count 290 10x3/uL (130-400); RBC Distribution Width 13.9 % (11.5-14.5); Red Blood Cell (RBC) Count 5.13 mill/uL (4.70-6.10); White Blood Cell (WBC) Count 20.1 10x3/uL (4.8-10.8)
[2022-03-08] MEDS: Aspirin 81 mg Enteric Coated Tablet PO SCH (09:02)
[2022-03-08] MEDS: Carvedilol 3.125 MG TAB PO SCH ×2 (09:03→17:54)
[2022-03-08 11:25] LABS: Band 9 % (5-11); Lymphocytes 12 % (21-51); MDiff Complete? YES; Monocytes 5 % (0-10); Neutrophil 71 % (42-75); RBC Morphology Normal; Reactive Lymphocytes 3 % (0-10)
[2022-03-08 15:54] LABS: INR-International Normal Ratio 1.1; Prothrombin Time 15.1 sec (12.0-14.7)
[2022-03-08 15:56] LABS: PTT 67.7 sec (22.9-36.1)
[2022-03-08 15:58] LABS: D-Dimer Test 1.05 *mcg/mL (0.27-0.43)
[2022-03-08] MEDS: Apixaban 5 MG TAB PO SCH (20:26)
[2022-03-09] MEDS: Cefepime 2 GM in Sodium Chloride 0.9% 100 ML IVPB SCH ×3 (04:18→20:21)
[2022-03-09] MEDS ORDERED: Furosemide 20 MG/2 ML VIAL SLOW IVP SCH ×2 (09:15→17:00)
[2022-03-09] MEDS: Apixaban 5 MG TAB PO SCH ×2 (09:16→20:21)
[2022-03-09] MEDS: Carvedilol 3.125 MG TAB PO SCH ×2 (09:17→17:02)
[2022-03-09] MEDS: Aspirin 81 mg Enteric Coated Tablet PO SCH (09:17)
[2022-03-09] MEDS: Ketorolac Tromethamine 30 MG/ML VIAL IVP PRN ×2 (12:07→17:03)
[2022-03-09] MEDS ORDERED: Vancomycin HCl 2.5 GM in Sodium Chloride 0.9% 500 ML IVPB SCH (14:15)
[2022-03-09 14:23] LABS: Protein C Activity 69 % (78-152)
[2022-03-09 14:25] LABS: Factor VIII Test 302.7 % ACTIVE (56-157)
[2022-03-09 18:00] LABS: Bacteria/HPF None Seen HPF (None Seen); Bilirubin Negative (Negative); Blood, Urine Negative (Negative); CAUTI Indications for Culture Fever or rigors; Clarity Clear (Clear); Glucose, Urine (Dipstick) Normal (Negative); Ketone, Urine Negative (Negative); Leukocyte Negative Leu/uL (Negative); Nitrite Negative (Negative); Protein, Urine (Dipstick) 20 mg/dL (Neg-Trace); RBC/HPF 0-3 HPF (0-3); Specific Gravity, Urine 1.018 (1.002-1.036); Squamous Epithelial None Seen HPF (0-3); Urobilinogen Normal mg/dL (Less than 2); WBC/HPF 0-3 HPF (0-3)
[2022-03-09 18:01] LABS: Urine Culture Reflex No No
[2022-03-09] MEDS: Ipratropium/Albuterol 3 ML NEB NEB SCH (18:32)
[2022-03-09] MEDS ORDERED: VANCOMYCIN 1.25 GM/250 ML BAG IVPB SCH (21:00)
[2022-03-10] MEDS: Ipratropium/Albuterol 3 ML NEB NEB SCH ×5 (00:12→22:04)
[2022-03-10] MEDS: VANCOMYCIN 1.25 GM/250 ML BAG 1.25 GM in Premix Bag 1 BAG IVPB SCH ×2 (03:10→15:37)
[2022-03-10] MEDS: Cefepime 2 GM in Sodium Chloride 0.9% 100 ML IVPB SCH ×3 (03:46→20:40)
[2022-03-10 04:29] LABS: #Lymphocytes 0.6 thou/uL (1.20-3.40); #Monocytes 1.5 thou/uL (0.11-0.59); #Neutrophils 14.1 thou/uL (1.40-6.50); %Eosinophils 0.3 % (0.0-10.0); %Lymphocytes 3.7 % (21.0-51.0); %Monocytes 9.4 % (0.0-10.0); %Neutrophils 86.6 % (42.0-75.0); Hemoglobin 14.1 g/dL (14.0-18.0); Mean Corpuscular HGB CONC 33.7 g/dL (32.0-36.0); Mean Corpuscular Hemoglobin 29.8 pg (27.0-31.0); Mean Corpuscular Volume 88.7 fl (78.0-98.0); Mean Platelet Volume 7.1 fL (7.4-10.4); Platelet Count 233 10x3/uL (130-400); RBC Distribution Width 13.4 % (11.5-14.5); Red Blood Cell (RBC) Count 4.72 mill/uL (4.70-6.10); White Blood Cell (WBC) Count 16.3 10x3/uL (4.8-10.8)
[2022-03-10 04:46] LABS: Anion Gap 14 mmol/L (10-20); BUN (Urea Nitrogen) 20 mg/dL (8.4-25.7); Calc. Creatinine Clearance 133 mL/min (70-130); Calcium 8.8 mg/dL (7.8-10.44); Carbon Dioxide 21 mmol/L (23-31); Chloride 101 mmol/L (98-107); Estimated GFR 90; Glucose 113 mg/dL (83-110); Magnesium 1.8 mg/dL (1.6-2.6); Potassium 3.9 mmol/L (3.5-5.1); Sodium 132 mmol/L (136-145)
[2022-03-10] MEDS: Apixaban 5 MG TAB PO SCH ×2 (09:00→20:41)
[2022-03-10] MEDS: Aspirin 81 mg Enteric Coated Tablet PO SCH (09:00)
[2022-03-10] MEDS: Carvedilol 3.125 MG TAB PO SCH ×2 (09:01→15:37)
[2022-03-10] MEDS: Ketorolac Tromethamine 30 MG/ML VIAL IVP SCH ×3 (09:09→20:42)
[2022-03-10 14:30] LABS: Cardiolipin IgA Ab 6.5 APL-U/mL (<14 Negative); Cardiolipin IgG Ab 3.6 GPL-U/mL (<10 Negative); Cardiolipin IgM Ab 5.8 MPL-U/mL (<10 Negative); EliA APS New Method **** NEW METHOD ****
[2022-03-10] MEDS ORDERED: Furosemide 20 MG/2 ML VIAL SLOW IVP SCH (16:45)
[2022-03-10] MEDS: Acetaminophen 325 MG TAB PO SCH ×2 (17:46→20:41)
[2022-03-11] MEDS: Acetaminophen 325 MG TAB PO SCH ×5 (02:10→16:29)
[2022-03-11 02:42] LABS: #Eosinphils 0.1 thou/uL (0.0-0.7); #Lymphocytes 0.7 thou/uL (1.20-3.40); #Monocytes 1.3 thou/uL (0.11-0.59); #Neutrophils 10.6 thou/uL (1.40-6.50); %Basophils 0.1 % (0.0-1.0); %Eosinophils 0.8 % (0.0-10.0); %Lymphocytes 5.8 % (21.0-51.0); %Monocytes 10.3 % (0.0-10.0); %Neutrophils 83.1 % (42.0-75.0); Hemoglobin 13.5 g/dL (14.0-18.0); Mean Corpuscular HGB CONC 32.4 g/dL (32.0-36.0); Mean Corpuscular Hemoglobin 28.6 pg (27.0-31.0); Mean Corpuscular Volume 88.4 fl (78.0-98.0); Mean Platelet Volume 6.9 fL (7.4-10.4); Platelet Count 226 10x3/uL (130-400); RBC Distribution Width 13.4 % (11.5-14.5); Red Blood Cell (RBC) Count 4.72 mill/uL (4.70-6.10); White Blood Cell (WBC) Count 12.8 10x3/uL (4.8-10.8)
[2022-03-11 03:00] LABS: Vancomycin, Trough 12.5 ug/mL
[2022-03-11 03:05] LABS: Chloride 101 mmol/L (98-107); Potassium 3.7 mmol/L (3.5-5.1); Sodium 134 mmol/L (136-145)
[2022-03-11 03:06] LABS: Glucose 125 mg/dL (83-110)
[2022-03-11 03:07] LABS: Anion Gap 15 mmol/L (10-20); Carbon Dioxide 22 mmol/L (23-31)
[2022-03-11 03:09] LABS: Calc. Creatinine Clearance 120 mL/min (70-130); Estimated GFR 79
[2022-03-11 03:10] LABS: BUN (Urea Nitrogen) 26 mg/dL (8.4-25.7)
[2022-03-11] MEDS: VANCOMYCIN 1.25 GM/250 ML BAG 1.25 GM in Premix Bag 1 BAG IVPB SCH ×2 (03:56→16:28)
[2022-03-11] MEDS: Ketorolac Tromethamine 30 MG/ML VIAL IVP SCH ×3 (03:56→16:57)
[2022-03-11] MEDS: Cefepime 2 GM in Sodium Chloride 0.9% 100 ML IVPB SCH ×2 (04:00→12:33)
[2022-03-11] MEDS: Ipratropium/Albuterol 3 ML NEB NEB SCH ×2 (07:17→13:21)
[2022-03-11] MEDS: Apixaban 5 MG TAB PO SCH (10:03)
[2022-03-11] MEDS: Carvedilol 3.125 MG TAB PO SCH (10:03)
[2022-03-11] MEDS: Aspirin 81 mg Enteric Coated Tablet PO SCH (10:04)
[2022-03-11 11:24] VITALS: TEMP 97.7
[2022-03-11 13:39] LABS: Beta-2-Microglobulin 1.9 mg/L (0.6-2.4)
[2022-03-11 15:28] VITALS: BP 159/87
== END 2022-03-11 17:59 | disposition home or self-care (01) | DRG 175 ==
LOC: ERS 09:19 → ERHOLD 10:55 → IMCU/EMU 19:59
PROVIDERS: ADMIT Family Medicine; ATTEND Hospitalist
DX: I26.99 Other pulmonary embolism without acute cor pulmonale (principal); I50.33 Acute on chronic diastolic (congestive) heart failure; J96.01 Acute respiratory failure with hypoxia; I48.92 Unspecified atrial flutter; I82.621 Acute embolism and thrombosis of deep veins of right upper extremity; L03.115 Cellulitis of right lower limb; K21.9 Gastro-esophageal reflux disease without esophagitis; I48.0 Paroxysmal atrial fibrillation; I11.0 Hypertensive heart disease with heart failure; G47.33 Obstructive sleep apnea (adult) (pediatric); Z79.899 Other long term (current) drug therapy; Z95.0 Presence of cardiac pacemaker; Z79.82 Long term (current) use of aspirin
CPT/HCPCS: 36415; 36416; 71045; 80048; 80053; 80202; 81001; 82232; 83090; 83735; 83880; 84484; 85025; 85240; 85300; 85303; 85305; 85307; 85379; 85598; 85610; 85730; 86147; 87040; 93005; 93306; 93970; 94640; J0692; J1644; J1885; J1940; J2270; J3010; J3370; J3490; J7030; J7620; U0002

== ENCOUNTER 2022-04-08 08:46 | Outpatient (CLI) | payer MEDICARE, OTHER | END 2022-04-08 08:47 | disposition home or self-care (01) | LOC: RAD 08:46 | PROVIDERS: ATTEND Internal Medicine Critical Care Medicine | DX: R06.00 Dyspnea, unspecified (principal); J90 Pleural effusion, not elsewhere classified; J98.11 Atelectasis | CPT/HCPCS: 71046 ==

== ENCOUNTER 2022-05-05 13:39 | Outpatient (CLI) | payer MEDICARE, OTHER | END 2022-05-05 13:40 | disposition home or self-care (01) | LOC: RAD 13:39 | PROVIDERS: ATTEND Internal Medicine Critical Care Medicine | DX: R06.00 Dyspnea, unspecified (principal); I51.7 Cardiomegaly; R09.89 Other specified symptoms and signs involving the circulatory and respiratory systems | CPT/HCPCS: 71046 ==

== ENCOUNTER 2023-01-04 15:06 | Outpatient (CLI) | payer MEDICARE, OTHER | END 2023-01-04 15:07 | disposition home or self-care (01) | LOC: BICULT 15:06 | PROVIDERS: ATTEND Internal Medicine | DX: E04.1 Nontoxic single thyroid nodule (principal) | CPT/HCPCS: 76536 ==

== ENCOUNTER 2023-07-14 10:33 | Day surgery (SDC) | payer MEDICARE, OTHER | END 2023-07-14 11:00 | disposition home or self-care (01) | LOC: ONC/OP 10:33 | PROVIDERS: ATTEND Internal Medicine | DX: L03.90 Cellulitis, unspecified (principal) | CPT/HCPCS: 99211; G0463 ==

== ENCOUNTER 2024-02-16 15:50 | Outpatient (CLI) | payer MEDICARE, OTHER | END 2024-02-16 15:51 | disposition home or self-care (01) | LOC: BICRAD 15:50 | PROVIDERS: ATTEND Internal Medicine | DX: M54.50 Low back pain, unspecified (principal); M41.86 Other forms of scoliosis, lumbar region; M47.816 Spondylosis without myelopathy or radiculopathy, lumbar region | CPT/HCPCS: 72100 ==

== ENCOUNTER 2024-03-05 13:25 | Outpatient (CLI) | payer MEDICARE, OTHER | END 2024-03-05 13:26 | disposition home or self-care (01) | LOC: RAD 13:25 | PROVIDERS: ATTEND Internal Medicine | DX: R05.1 Acute cough (principal) | CPT/HCPCS: 71046 ==

== ENCOUNTER 2024-03-09 14:13 | Outpatient (CLI) | payer MEDICARE, OTHER | END 2024-03-09 14:14 | disposition home or self-care (01) | LOC: RAD 14:13 | PROVIDERS: ATTEND Internal Medicine | DX: M47.816 Spondylosis without myelopathy or radiculopathy, lumbar region (principal); I51.7 Cardiomegaly | CPT/HCPCS: 71046 ==

== ENCOUNTER 2025-01-09 08:30 | Outpatient (CLI) | payer MEDICARE, OTHER ==
[2025-01-09] MEDS ORDERED: Iopamidol 370 76% 100 ML VIAL ONE (10:42)
== END 2025-01-09 08:31 | disposition home or self-care (01) ==
LOC: CT 08:30
PROVIDERS: ATTEND Internal Medicine
DX: R19.01 Right upper quadrant abdominal swelling, mass and lump (principal)
CPT/HCPCS: 74160